=== PATIENT | male | born 1935 | race Caucasian/White ===

== ENCOUNTER 2019-08-27 00:40 | Inpatient (IN) ==
[2019-08-27] MEDS ORDERED: Aspirin 81 MG TAB.CHEW PO ONE (00:55)
[2019-08-27 01:34] LABS: Basophils % 0.3 %; Eosinophils # 1.2 K/mcL (0.0-0.6); Eosinophils % 12.4 %; Hematocrit 37.8 % (37.5-50.1); Hemoglobin 13.9 g/dL (12.9-16.9); Immature Granulocytes % 0.9 % (0-4); Lymphocytes # 1.2 K/mcL (0.6-4.6); Lymphocytes % 12.6 %; Mean Corpuscular HGB Conc 36.8 g/dL (31.6-35.5); Mean Corpuscular Volume 87.1 fL (83.0-100.0); Mean Platelet Volume 10.1 fL (9.4-12.4); Monocytes # 0.5 K/mcL (0.0-1.3); Platelet Count 216 K/mcL (140-400); Red Blood Count 4.34 M/mcL (4.19-5.50); Red Cell Distribution Width 12.3 % (11.5-14.5); Segmented Neutrophils % 68.8 %; White Blood Count 9.7 K/mcL (4.3-11.1)
[2019-08-27 01:36] LABS: INR 2.6; Prothrombin Time 29.7 Seconds (9.4-12.1)
[2019-08-27 01:40] LABS: Neutrophils # 6.7 K/mcL (1.6-8.9)
[2019-08-27 01:52] LABS: Albumin 4.1 g/dL (3.5-5.7); Albumin/Globulin Ratio 1.4 (1.1-2.2); Bilirubin,Direct 0.1 mg/dL (0.0-0.2); Bilirubin,Indirect 0.4 mg/dL (0.0-1.0); Bilirubin,Total 0.5 mg/dL (0.3-1.0); Total Protein 7.1 g/dL (6.4-8.9)
[2019-08-27 01:56] LABS: BUN/Creatinine Ratio 18 (6-26); Blood Urea Nitrogen 24 mg/dL (8-23); Calcium 9.5 mg/dL (8.6-10.3); Carbon Dioxide 26 mEq/L (23-29); Chloride 91 mEq/L (98-107); Glucose 316 mg/dL (70-105); Osmolality,Calculated 282 (280-300); Potassium 3.7 mEq/L (3.5-5.1); Sodium 128 mEq/L (136-145); Troponin I < 0.03 ng/mL (< 0.04); eGFR For African Americans > 60 (> 60); eGFR For Non-African Americans 51 (> 60)
[2019-08-27 02:28] LABS: Platelet Estimate Normal (Normal); Reactive Lymphocytes Present (Not Present)
[2019-08-27] MEDS ORDERED: Nitroglycerin 0.4 MG TAB.SUBL SL ONE (02:30)
[2019-08-27] MEDS ORDERED: cefTRIAXone 1,000 MG in 0.9 % Sodium Chloride Mini Bag 100 ML IVPB ONE (02:38)
[2019-08-27] MEDS: 0.9 % Sodium Chloride 1,000 ML IVC SCH ×2 (05:51→15:04)
[2019-08-27] MEDS ORDERED: Naloxone 0.4 MG/ML INJ IVP PRN (07:14)
[2019-08-27] MEDS: amLODIPine 5 MG TABLET PO SCH (07:48)
[2019-08-27] MEDS: Lisinopril 20 MG TABLET PO SCH (07:48)
[2019-08-27] MEDS ORDERED: *HR* Dextrose 50 % in Water (Syg) 50 ML SYRINGE IVP PRN (07:55)
[2019-08-27] MEDS ORDERED: D5% in Water 1,000 ML IVC PRN (07:55)
[2019-08-27] MEDS ORDERED: Dextrose Gel 15 GM/37.5 ML TUBE PO PRN ×2 (07:55)
[2019-08-27] MEDS ORDERED: Nitroglycerin 0.4 MG TAB.SUBL SL PRN (08:08)
[2019-08-27] MEDS ORDERED: NON-FORMULARY MEDICATION 1 EACH EACH (Amlodipine Besylate/Benazepril [Amlodipine-Benazepri PO SCH (09:00)
[2019-08-27] MEDS ORDERED: *HR* Warfarin 5 MG TABLET PO SCH (09:00)
[2019-08-27] MEDS ORDERED: *HR* Heparin 5,000 UNIT/ML VIAL IVP PRN ×2 (09:46)
[2019-08-27] MEDS ORDERED: *HR* Heparin 5,000 UNIT/ML VIAL IVP ONE (09:46)
[2019-08-27] MEDS ORDERED: Heparin 25,000 UNIT/250 ML D5W 25,000 UNIT/250 ML IV.SOLN IVC SCH (10:00)
[2019-08-27 10:21] LABS: Estimated Average Glucose 174 mg/dl
[2019-08-27] MEDS ORDERED: cefTRIAXone 1,000 MG in 0.9 % Sodium Chloride Mini Bag 100 ML IVPB SCH (10:26)
[2019-08-27] MEDS: Aspirin 81 MG TAB.CHEW PO SCH (10:56)
[2019-08-27 11:56] LABS: Hematocrit 35.1 % (37.5-50.1); Hemoglobin 12.6 g/dL (12.9-16.9); Mean Corpuscular HGB Conc 35.9 g/dL (31.6-35.5); Mean Corpuscular Hemoglobin 32.1 pg (28.0-33.3); Mean Corpuscular Volume 89.5 fL (83.0-100.0); Mean Platelet Volume 10.1 fL (9.4-12.4); Platelet Count 200 K/mcL (140-400); Red Blood Count 3.92 M/mcL (4.19-5.50); Red Cell Distribution Width 12.3 % (11.5-14.5); White Blood Count 9.6 K/mcL (4.3-11.1)
[2019-08-27] MEDS: Insulin LISPRO 300 UNITS/3 ML VIAL SQ SCH ×3 (11:57→21:42)
[2019-08-27 12:01] LABS: INR 2.8; Prothrombin Time 31.7 Seconds (9.4-12.1)
[2019-08-27] MEDS ORDERED: *HR* Warfarin 5 MG TABLET PO ONE (18:00)
[2019-08-27] MEDS ORDERED: Warfarin perPT PO PRN (18:00)
[2019-08-27 18:48] LABS: Varicella Zoster IgG Antibody Positive
[2019-08-27 19:26] LABS: HIV-1&2 Antibody & p24 Ag Nonreactive (Nonreactive)
[2019-08-27] MEDS: valACYclovir 500 MG TABLET PO SCH (21:09)
[2019-08-27] MEDS ORDERED: 0.9 % Sodium Chloride 1,000 ML IVC SCH (23:59)
[2019-08-28] MEDS ORDERED: cefTRIAXone 1,000 MG in Water for inj. (sterile) 10 ML IVP SCH (02:00)
[2019-08-28 08:31] LABS: Hematocrit 37.6 % (37.5-50.1); Hemoglobin 13.6 g/dL (12.9-16.9); Mean Corpuscular HGB Conc 36.2 g/dL (31.6-35.5); Mean Corpuscular Hemoglobin 31.9 pg (28.0-33.3); Mean Corpuscular Volume 88.3 fL (83.0-100.0); Monocytes # 0.4 K/mcL (0.0-1.3); Platelet Count 192 K/mcL (140-400); Red Blood Count 4.26 M/mcL (4.19-5.50); Red Cell Distribution Width 12.7 % (11.5-14.5); White Blood Count 8.7 K/mcL (4.3-11.1)
[2019-08-28 08:36] LABS: INR 2.1; Prothrombin Time 23.6 Seconds (9.4-12.1)
[2019-08-28 08:54] LABS: BUN/Creatinine Ratio 17 (6-26); Blood Urea Nitrogen 20 mg/dL (8-23); Calcium 8.5 mg/dL (8.6-10.3); Carbon Dioxide 29 mEq/L (23-29); Chloride 99 mEq/L (98-107); Glucose 150 mg/dL (70-105); Magnesium 1.7 mg/dL (1.6-2.6); Osmolality,Calculated 285 (280-300); Phosphorous 2.3 mg/dL (2.7-4.5); Potassium 3.7 mEq/L (3.5-5.1); Sodium 135 mEq/L (136-145); eGFR For African Americans > 60 (> 60); eGFR For Non-African Americans 60 (> 60)
[2019-08-28] MEDS ORDERED: cefTRIAXone 2,000 MG in Water for inj. (sterile) 20 ML IVP SCH (09:00)
[2019-08-28 09:06] LABS: Eosinophils # 1.9 K/mcL (0.0-0.6); Lymphocytes # 1.4 K/mcL (0.6-4.6); Neutrophils # 5.1 K/mcL (1.6-8.9); Platelet Estimate Normal (Normal); Reactive Lymphocytes Present (Not Present)
[2019-08-28] MEDS: amLODIPine 5 MG TABLET PO SCH (10:16)
[2019-08-28] MEDS: valACYclovir 500 MG TABLET PO SCH ×2 (10:17→21:00)
[2019-08-28] MEDS: Insulin LISPRO 300 UNITS/3 ML VIAL SQ SCH ×4 (10:17→21:01)
[2019-08-28] MEDS: Lisinopril 20 MG TABLET PO SCH (10:17)
[2019-08-28] MEDS: Aspirin 81 MG TAB.CHEW PO SCH (10:17)
[2019-08-28] MEDS: cefTRIAXone 2,000 MG in 0.9 % Sodium Chloride Mini Bag 100 ML IVPB SCH (10:17)
[2019-08-29 07:51] LABS: Hematocrit 36.9 % (37.5-50.1); Hemoglobin 13.8 g/dL (12.9-16.9); Immature Platelets 2.3 % (1.1-6.1); Mean Corpuscular Hemoglobin 32.9 pg (28.0-33.3); Mean Corpuscular Volume 87.9 fL (83.0-100.0); Mean Platelet Volume 9.4 fL (9.4-12.4); Platelet Count 187 K/mcL (140-400); Red Cell Distribution Width 12.4 % (11.5-14.5); White Blood Count 9.8 K/mcL (4.3-11.1)
[2019-08-29 07:55] LABS: Mean Corpuscular HGB Conc 37.4 g/dL (31.6-35.5)
[2019-08-29 07:57] LABS: INR 1.6; Prothrombin Time 18.7 Seconds (9.4-12.1)
[2019-08-29] MEDS: Lisinopril 20 MG TABLET PO SCH (08:05)
[2019-08-29] MEDS: Cyanocobalamin (B-12) 1,000 MCG TABLET PO SCH (08:05)
[2019-08-29] MEDS: amLODIPine 5 MG TABLET PO SCH (08:05)
[2019-08-29] MEDS: valACYclovir 500 MG TABLET PO SCH ×2 (08:05→20:11)
[2019-08-29] MEDS: cefTRIAXone 2,000 MG in 0.9 % Sodium Chloride Mini Bag 100 ML IVPB SCH (08:05)
[2019-08-29] MEDS: Aspirin 81 MG TAB.CHEW PO SCH (08:05)
[2019-08-29] MEDS: Insulin LISPRO 300 UNITS/3 ML VIAL SQ SCH ×4 (08:13→20:12)
[2019-08-29 08:15] LABS: Eosinophils # 2.4 K/mcL (0.0-0.6); Lymphocytes # 2.8 K/mcL (0.6-4.6); Monocytes # 0.2 K/mcL (0.0-1.3); Neutrophils # 4.4 K/mcL (1.6-8.9)
[2019-08-29 08:16] LABS: Platelet Estimate Normal (Normal); Reactive Lymphocytes Present (Not Present)
[2019-08-29 08:23] LABS: BUN/Creatinine Ratio 20 (6-26); Blood Urea Nitrogen 20 mg/dL (8-23); Calcium 9.2 mg/dL (8.6-10.3); Carbon Dioxide 27 mEq/L (23-29); Chloride 98 mEq/L (98-107); Glucose 191 mg/dL (70-105); Magnesium 1.7 mg/dL (1.6-2.6); Osmolality,Calculated 284 (280-300); Phosphorous 2.9 mg/dL (2.7-4.5); Potassium 3.7 mEq/L (3.5-5.1); Sodium 133 mEq/L (136-145); eGFR For African Americans > 60 (> 60); eGFR For Non-African Americans > 60 (> 60)
[2019-08-29] MEDS ORDERED: *HR* Heparin 5,000 UNIT/ML VIAL IVP ONE (12:13)
[2019-08-29] MEDS ORDERED: *HR* Heparin 5,000 UNIT/ML VIAL IVP PRN ×2 (12:13)
[2019-08-29] MEDS ORDERED: Heparin 25,000 UNIT/250 ML D5W 25,000 UNIT/250 ML IV.SOLN IVC SCH (12:15)
[2019-08-29 12:44] LABS: Hematocrit 38.7 % (37.5-50.1); Hemoglobin 14.1 g/dL (12.9-16.9); Mean Corpuscular HGB Conc 36.4 g/dL (31.6-35.5); Mean Platelet Volume 9.7 fL (9.4-12.4); Platelet Count 242 K/mcL (140-400); Red Cell Distribution Width 12.4 % (11.5-14.5); White Blood Count 10.5 K/mcL (4.3-11.1)
[2019-08-29 12:54] LABS: INR 1.4; Prothrombin Time 16.3 Seconds (9.4-12.1)
[2019-08-30 02:52] LABS: Basophils # 0.1 K/mcL (0.0-0.2); Basophils % 0.8 %; Eosinophils # 3.1 K/mcL (0.0-0.6); Eosinophils % 31.1 %; Hematocrit 37.1 % (37.5-50.1); Hemoglobin 13.5 g/dL (12.9-16.9); Immature Granulocytes % 1.3 % (0-4); Lymphocytes # 2.1 K/mcL (0.6-4.6); Lymphocytes % 21.4 %; Mean Corpuscular HGB Conc 36.4 g/dL (31.6-35.5); Mean Corpuscular Volume 87.9 fL (83.0-100.0); Mean Platelet Volume 9.7 fL (9.4-12.4); Monocytes # 0.4 K/mcL (0.0-1.3); Monocytes % 3.9 %; Neutrophils # 4.2 K/mcL (1.6-8.9); Platelet Count 215 K/mcL (140-400); Red Blood Count 4.22 M/mcL (4.19-5.50); Red Cell Distribution Width 12.2 % (11.5-14.5); Segmented Neutrophils % 41.5 %
[2019-08-30 03:10] LABS: BUN/Creatinine Ratio 23 (6-26); Blood Urea Nitrogen 24 mg/dL (8-23); Calcium 9.2 mg/dL (8.6-10.3); Carbon Dioxide 28 mEq/L (23-29); Chloride 99 mEq/L (98-107); Glucose 171 mg/dL (70-105); Magnesium 1.6 mg/dL (1.6-2.6); Osmolality,Calculated 284 (280-300); Phosphorous 3.7 mg/dL (2.7-4.5); Sodium 133 mEq/L (136-145); eGFR For African Americans > 60 (> 60); eGFR For Non-African Americans > 60 (> 60)
[2019-08-30 03:27] LABS: Platelet Estimate Normal (Normal); Reactive Lymphocytes Present (Not Present)
[2019-08-30] MEDS: cefTRIAXone 2,000 MG in 0.9 % Sodium Chloride Mini Bag 100 ML IVPB SCH (07:53)
[2019-08-30] MEDS: valACYclovir 500 MG TABLET PO SCH ×3 (07:54→21:45)
[2019-08-30] MEDS: Aspirin 81 MG TAB.CHEW PO SCH (07:54)
[2019-08-30] MEDS: Cyanocobalamin (B-12) 1,000 MCG TABLET PO SCH (07:54)
[2019-08-30] MEDS: Lisinopril 20 MG TABLET PO SCH (07:54)
[2019-08-30] MEDS: amLODIPine 5 MG TABLET PO SCH (07:54)
[2019-08-30] MEDS: Insulin LISPRO 300 UNITS/3 ML VIAL SQ SCH ×4 (07:56→21:44)
[2019-08-30 12:33] LABS: INR 1.3; Prothrombin Time 15.3 Seconds (9.4-12.1)
[2019-08-30] MEDS ORDERED: Warfarin perPT PO PRN (18:00)
[2019-08-30] MEDS ORDERED: *HR* Warfarin 5 MG TABLET PO ONE (18:00)
[2019-08-31] MEDS ORDERED: Acetaminophen 325 MG TABLET PO ONE (03:17)
[2019-08-31 06:21] LABS: Basophils # 0.1 K/mcL (0.0-0.2); Basophils % 0.5 %; Eosinophils % 37.1 %; Hematocrit 35.2 % (37.5-50.1); Hemoglobin 12.8 g/dL (12.9-16.9); Immature Granulocytes % 1.1 % (0-4); Lymphocytes # 1.7 K/mcL (0.6-4.6); Mean Corpuscular HGB Conc 36.4 g/dL (31.6-35.5); Mean Corpuscular Hemoglobin 32.2 pg (28.0-33.3); Mean Corpuscular Volume 88.7 fL (83.0-100.0); Mean Platelet Volume 9.6 fL (9.4-12.4); Monocytes # 0.4 K/mcL (0.0-1.3); Monocytes % 3.9 %; Neutrophils # 4.3 K/mcL (1.6-8.9); Platelet Count 208 K/mcL (140-400); Red Blood Count 3.97 M/mcL (4.19-5.50); Red Cell Distribution Width 12.3 % (11.5-14.5); Segmented Neutrophils % 41.4 %; White Blood Count 10.4 K/mcL (4.3-11.1)
[2019-08-31 06:23] LABS: Eosinophils # 3.9 K/mcL (0.0-0.6)
[2019-08-31 06:31] LABS: INR 1.3; Prothrombin Time 14.6 Seconds (9.4-12.1)
[2019-08-31 06:39] LABS: Platelet Estimate Normal (Normal); Reactive Lymphocytes Present (Not Present)
[2019-08-31 06:42] LABS: BUN/Creatinine Ratio 21 (6-26); Blood Urea Nitrogen 23 mg/dL (8-23); Calcium 9.1 mg/dL (8.6-10.3); Carbon Dioxide 28 mEq/L (23-29); Chloride 100 mEq/L (98-107); Glucose 170 mg/dL (70-105); Magnesium 1.6 mg/dL (1.6-2.6); Osmolality,Calculated 288 (280-300); Potassium 3.6 mEq/L (3.5-5.1); Sodium 135 mEq/L (136-145); eGFR For African Americans > 60 (> 60); eGFR For Non-African Americans > 60 (> 60)
[2019-08-31] MEDS: Insulin LISPRO 300 UNITS/3 ML VIAL SQ SCH ×2 (09:07→12:01)
[2019-08-31] MEDS: valACYclovir 500 MG TABLET PO SCH ×2 (09:07→13:45)
[2019-08-31] MEDS: Lisinopril 20 MG TABLET PO SCH (09:07)
[2019-08-31] MEDS: Cyanocobalamin (B-12) 1,000 MCG TABLET PO SCH (09:08)
[2019-08-31] MEDS: cefTRIAXone 2,000 MG in 0.9 % Sodium Chloride Mini Bag 100 ML IVPB SCH (09:08)
[2019-08-31] MEDS: amLODIPine 5 MG TABLET PO SCH (09:08)
[2019-08-31] MEDS: Aspirin 81 MG TAB.CHEW PO SCH (09:08)
[2019-08-31] MEDS ORDERED: Warfarin perPT PO PRN (10:45)
[2019-08-31 11:20] VITALS: BP 128/59
[2019-08-31] MEDS ORDERED: Aminoglycoside Consult 1 EACH MC ONE (14:57)
[2019-08-31] MEDS ORDERED: *HR* Warfarin 5 MG TABLET PO ONE (18:00)
== END 2019-08-31 14:58 | disposition home or self-care (01) | DRG 281 ==
LOC: 2ANU 00:40 → EMEROOARM 00:40 → SUATTDRO 03:34 → 2ANU 04:00
PROVIDERS: ADMIT Internal Medicine; ATTEND Pharmacist

== ENCOUNTER 2019-08-31 21:49 | Inpatient (IN) ==
[2019-08-31] MEDS ORDERED: *HR* FentaNYL (PF) 100 MCG/2 ML VIAL IVP ONE (22:00)
[2019-08-31] MEDS ORDERED: 0.9 % Sodium Chloride 500 ML IVC ONE (22:07)
[2019-08-31] MEDS ORDERED: *HR* Heparin 5,000 UNIT/ML VIAL IVP ONE (22:11)
[2019-08-31] MEDS ORDERED: *HR* Heparin 5,000 UNIT/ML VIAL IVP PRN ×2 (22:11)
[2019-08-31 22:34] LABS: Basophils # 0.1 K/mcL (0.0-0.2); Basophils % 0.4 %; Eosinophils % 35.4 %; Hematocrit 35.8 % (37.5-50.1); Hemoglobin 13.2 g/dL (12.9-16.9); Immature Granulocytes % 0.9 % (0-4); Lymphocytes # 1.7 K/mcL (0.6-4.6); Mean Corpuscular HGB Conc 36.9 g/dL (31.6-35.5); Mean Corpuscular Hemoglobin 32.3 pg (28.0-33.3); Mean Corpuscular Volume 87.5 fL (83.0-100.0); Mean Platelet Volume 10.1 fL (9.4-12.4); Monocytes # 0.5 K/mcL (0.0-1.3); Monocytes % 4.2 %; Platelet Count 238 K/mcL (140-400); Red Blood Count 4.09 M/mcL (4.19-5.50); Red Cell Distribution Width 12.2 % (11.5-14.5); Segmented Neutrophils % 44.1 %; White Blood Count 11.4 K/mcL (4.3-11.1)
[2019-08-31 22:36] LABS: INR 1.2; Prothrombin Time 13.4 Seconds (9.4-12.1)
[2019-08-31] MEDS: Heparin 25,000 UNIT/250 ML D5W 25,000 UNIT/250 ML IV.SOLN IVC SCH (22:50)
[2019-08-31 22:52] LABS: BUN/Creatinine Ratio 22 (6-26); Blood Urea Nitrogen 27 mg/dL (8-23); Calcium 9.2 mg/dL (8.6-10.3); Carbon Dioxide 22 mEq/L (23-29); Chloride 96 mEq/L (98-107); Glucose 305 mg/dL (70-105); Osmolality,Calculated 289 (280-300); Potassium 3.9 mEq/L (3.5-5.1); Sodium 131 mEq/L (136-145); eGFR For African Americans > 60 (> 60); eGFR For Non-African Americans 55 (> 60)
[2019-08-31 22:53] LABS: Troponin I 0.03 ng/mL (< 0.04)
[2019-08-31 23:17] LABS: Platelet Estimate Normal (Normal); Reactive Lymphocytes Present (Not Present)
[2019-08-31] MEDS ORDERED: Isovue-370 500 ML BOTTLE IVP ONE (23:28)
[2019-09-01] MEDS ORDERED: Naloxone 0.4 MG/ML INJ IVP PRN (05:09)
[2019-09-01] MEDS ORDERED: Dextrose Gel 15 GM/37.5 ML TUBE PO PRN ×2 (05:11)
[2019-09-01] MEDS ORDERED: D5% in Water 1,000 ML IVC PRN (05:11)
[2019-09-01] MEDS ORDERED: *HR* Dextrose 50 % in Water (Syg) 50 ML SYRINGE IVP PRN (05:11)
[2019-09-01 05:43] LABS: Basophils # 0.1 K/mcL (0.0-0.2); Basophils % 0.9 %; Eosinophils # 3.8 K/mcL (0.0-0.6); Eosinophils % 35.9 %; Hematocrit 34.4 % (37.5-50.1); Hemoglobin 11.8 g/dL (12.9-16.9); Immature Granulocytes % 0.9 % (0-4); Lymphocytes # 2.1 K/mcL (0.6-4.6); Lymphocytes % 19.7 %; Mean Corpuscular HGB Conc 34.3 g/dL (31.6-35.5); Mean Corpuscular Hemoglobin 31.9 pg (28.0-33.3); Mean Platelet Volume 10.1 fL (9.4-12.4); Monocytes # 0.7 K/mcL (0.0-1.3); Monocytes % 6.3 %; Neutrophils # 3.8 K/mcL (1.6-8.9); Platelet Count 194 K/mcL (140-400); Red Cell Distribution Width 12.5 % (11.5-14.5); Segmented Neutrophils % 36.3 %; White Blood Count 10.5 K/mcL (4.3-11.1)
[2019-09-01] MEDS: Insulin LISPRO 300 UNITS/3 ML VIAL SQ SCH ×4 (05:55→21:47)
[2019-09-01 06:00] LABS: Platelet Estimate Normal (Normal)
[2019-09-01 06:02] LABS: BUN/Creatinine Ratio 22 (6-26); Blood Urea Nitrogen 24 mg/dL (8-23); Calcium 8.7 mg/dL (8.6-10.3); Carbon Dioxide 25 mEq/L (23-29); Chloride 101 mEq/L (98-107); Glucose 202 mg/dL (70-105); Osmolality,Calculated 286 (280-300); Potassium 3.8 mEq/L (3.5-5.1); Sodium 133 mEq/L (136-145); eGFR For African Americans > 60 (> 60); eGFR For Non-African Americans > 60 (> 60)
[2019-09-01] MEDS ORDERED: Metoprolol XL (24 HR) Succ 25 MG TAB.ER.24H PO SCH (09:00)
[2019-09-01] MEDS ORDERED: Metoprolol XL (24 HR) Succ 25 MG TAB.ER.24H PO ONE ×2 (10:19→10:30)
[2019-09-01] MEDS: Heparin 25,000 UNIT/250 ML D5W 25,000 UNIT/250 ML IV.SOLN IVC SCH (17:44)
[2019-09-01] MEDS ORDERED: *HR* Warfarin 5 MG TABLET PO ONE (18:00)
[2019-09-01] MEDS ORDERED: Warfarin perPT PO PRN (18:00)
[2019-09-02] MEDS: Nitroglycerin 0.4 MG TAB.SUBL SL PRN ×5 (05:04→21:06)
[2019-09-02 06:23] LABS: INR 1.3; Prothrombin Time 14.3 Seconds (9.4-12.1)
[2019-09-02] MEDS: Metoprolol XL (24 HR) Succ 25 MG TAB.ER.24H PO SCH (07:19)
[2019-09-02] MEDS: Aspirin Enteric Coated 81 MG Tablet PO SCH (07:19)
[2019-09-02] MEDS: predniSONE 20 MG TABLET PO SCH (08:28)
[2019-09-02] MEDS: Insulin LISPRO 300 UNITS/3 ML VIAL SQ SCH ×4 (08:29→20:58)
[2019-09-02] MEDS: Heparin 25,000 UNIT/250 ML D5W 25,000 UNIT/250 ML IV.SOLN IVC SCH (11:30)
[2019-09-02] MEDS ORDERED: amLODIPine 5 MG TABLET PO SCH (13:47)
[2019-09-02] MEDS ORDERED: *HR* Warfarin 5 MG TABLET PO ONE (18:00)
[2019-09-02] MEDS: Insulin DETEMIR 100 UNIT/ML X5UNITS SQ SCH (21:00)
[2019-09-02] MEDS ORDERED: *HR* HYDROmorphone 2 MG TABLET PO ONE (21:06)
[2019-09-03] MEDS: Nitroglycerin 0.4 MG TAB.SUBL SL PRN ×3 (01:35→05:45)
[2019-09-03 06:43] LABS: INR 1.2
[2019-09-03] MEDS: Insulin LISPRO 300 UNITS/3 ML VIAL SQ SCH ×4 (07:33→20:16)
[2019-09-03] MEDS: amLODIPine 5 MG TABLET PO SCH (07:50)
[2019-09-03] MEDS: Metoprolol XL (24 HR) Succ 25 MG TAB.ER.24H PO SCH (07:51)
[2019-09-03] MEDS: Aspirin Enteric Coated 81 MG Tablet PO SCH (07:51)
[2019-09-03] MEDS: predniSONE 20 MG TABLET PO SCH (07:51)
[2019-09-03 07:59] LABS: Hematocrit 34.4 % (37.5-50.1); Hemoglobin 12.6 g/dL (12.9-16.9); Mean Corpuscular HGB Conc 36.6 g/dL (31.6-35.5); Mean Corpuscular Hemoglobin 32.2 pg (28.0-33.3); Mean Platelet Volume 9.8 fL (9.4-12.4); Platelet Count 207 K/mcL (140-400); Red Blood Count 3.91 M/mcL (4.19-5.50); Red Cell Distribution Width 12.3 % (11.5-14.5); White Blood Count 10.4 K/mcL (4.3-11.1)
[2019-09-03 08:09] LABS: BUN/Creatinine Ratio 22 (6-26); Blood Urea Nitrogen 22 mg/dL (8-23); Calcium 9.3 mg/dL (8.6-10.3); Carbon Dioxide 27 mEq/L (23-29); Chloride 100 mEq/L (98-107); Glucose 176 mg/dL (70-105); Magnesium 1.8 mg/dL (1.6-2.6); Osmolality,Calculated 288 (280-300); Phosphorous 2.7 mg/dL (2.7-4.5); Potassium 3.9 mEq/L (3.5-5.1); Sodium 135 mEq/L (136-145); eGFR For African Americans > 60 (> 60); eGFR For Non-African Americans > 60 (> 60)
[2019-09-03] MEDS: Heparin 25,000 UNIT/250 ML D5W 25,000 UNIT/250 ML IV.SOLN IVC SCH ×2 (09:20→18:57)
[2019-09-03] MEDS ORDERED: *HR* Midazolam HCl 2 MG/2 ML VIAL ONE (14:48)
[2019-09-03] MEDS ORDERED: *HR* FentaNYL (PF) 100 MCG/2 ML VIAL ONE (14:49)
[2019-09-03] MEDS ORDERED: Nitroglycerin 25 MG/250 ML INFUS..BTL IVC ONE (16:50)
[2019-09-03] MEDS: Nitroglycerin 25 MG/250 ML INFUS..BTL IVC SCH (16:56)
[2019-09-03] MEDS ORDERED: *HR* Warfarin 5 MG TABLET PO ONE (18:00)
[2019-09-03] MEDS: Insulin DETEMIR 100 UNIT/ML X5UNITS SQ SCH (20:16)
[2019-09-04 04:04] LABS: Basophils % 0.4 %; Eosinophils # 0.1 K/mcL (0.0-0.6); Eosinophils % 1.4 %; Hematocrit 32.1 % (37.5-50.1); Hemoglobin 11.6 g/dL (12.9-16.9); Immature Granulocytes % 1.3 % (0-4); Lymphocytes # 2.1 K/mcL (0.6-4.6); Lymphocytes % 21.2 %; Mean Corpuscular HGB Conc 36.1 g/dL (31.6-35.5); Mean Corpuscular Hemoglobin 32.3 pg (28.0-33.3); Mean Corpuscular Volume 89.4 fL (83.0-100.0); Mean Platelet Volume 9.9 fL (9.4-12.4); Monocytes # 0.7 K/mcL (0.0-1.3); Monocytes % 7.5 %; Neutrophils # 6.7 K/mcL (1.6-8.9); Platelet Count 209 K/mcL (140-400); Red Blood Count 3.59 M/mcL (4.19-5.50); Red Cell Distribution Width 12.7 % (11.5-14.5); Segmented Neutrophils % 68.2 %; White Blood Count 9.8 K/mcL (4.3-11.1)
[2019-09-04 04:09] LABS: INR 1.3; Prothrombin Time 14.4 Seconds (9.4-12.1)
[2019-09-04 04:22] LABS: BUN/Creatinine Ratio 22 (6-26); Blood Urea Nitrogen 24 mg/dL (8-23); Calcium 9.3 mg/dL (8.6-10.3); Carbon Dioxide 25 mEq/L (23-29); Chloride 102 mEq/L (98-107); Glucose 160 mg/dL (70-105); Magnesium 1.8 mg/dL (1.6-2.6); Osmolality,Calculated 285 (280-300); Phosphorous 2.9 mg/dL (2.7-4.5); Potassium 3.9 mEq/L (3.5-5.1); Sodium 134 mEq/L (136-145); eGFR For African Americans > 60 (> 60); eGFR For Non-African Americans > 60 (> 60)
[2019-09-04] MEDS: Insulin LISPRO 300 UNITS/3 ML VIAL SQ SCH ×5 (08:23→20:35)
[2019-09-04] MEDS: Aspirin Enteric Coated 81 MG Tablet PO SCH (08:24)
[2019-09-04] MEDS: amLODIPine 5 MG TABLET PO SCH (08:24)
[2019-09-04] MEDS: predniSONE 20 MG TABLET PO SCH (08:24)
[2019-09-04] MEDS: Metoprolol XL (24 HR) Succ 25 MG TAB.ER.24H PO SCH (08:24)
[2019-09-04] MEDS: Nitroglycerin 25 MG/250 ML INFUS..BTL IVC SCH (14:02)
[2019-09-04] MEDS: Heparin 25,000 UNIT/250 ML D5W 25,000 UNIT/250 ML IV.SOLN IVC SCH (14:03)
[2019-09-04] MEDS: Insulin DETEMIR 100 UNIT/ML X5UNITS SQ SCH (20:36)
[2019-09-05] MEDS: Aspirin Enteric Coated 81 MG Tablet PO SCH (08:29)
[2019-09-05] MEDS: amLODIPine 5 MG TABLET PO SCH (08:29)
[2019-09-05] MEDS: Metoprolol XL (24 HR) Succ 25 MG TAB.ER.24H PO SCH (08:29)
[2019-09-05] MEDS: Insulin LISPRO 300 UNITS/3 ML VIAL SQ SCH ×3 (08:30→21:29)
[2019-09-05 10:17] LABS: Basophils % 0.4 %; Eosinophils # 0.2 K/mcL (0.0-0.6); Eosinophils % 2.2 %; Hematocrit 32.7 % (37.5-50.1); Hemoglobin 11.5 g/dL (12.9-16.9); Immature Granulocytes % 0.9 % (0-4); Lymphocytes # 2.2 K/mcL (0.6-4.6); Lymphocytes % 22.3 %; Mean Corpuscular HGB Conc 35.2 g/dL (31.6-35.5); Mean Corpuscular Hemoglobin 32.2 pg (28.0-33.3); Mean Corpuscular Volume 91.6 fL (83.0-100.0); Mean Platelet Volume 9.8 fL (9.4-12.4); Monocytes # 0.7 K/mcL (0.0-1.3); Monocytes % 6.9 %; Neutrophils # 6.5 K/mcL (1.6-8.9); Platelet Count 197 K/mcL (140-400); Red Blood Count 3.57 M/mcL (4.19-5.50); Segmented Neutrophils % 67.3 %; White Blood Count 9.7 K/mcL (4.3-11.1)
[2019-09-05 10:22] LABS: INR 1.2; Prothrombin Time 13.5 Seconds (9.4-12.1)
[2019-09-05 10:25] LABS: Activated Partial Thrombo Time 73.2 Seconds (26.0-36.0)
[2019-09-05 10:37] LABS: BUN/Creatinine Ratio 20 (6-26); Blood Urea Nitrogen 26 mg/dL (8-23); Calcium 9.4 mg/dL (8.6-10.3); Carbon Dioxide 24 mEq/L (23-29); Chloride 99 mEq/L (98-107); Chol/HDL Ratio 2.8 (0-4.9); Cholesterol 126 mg/dL (< 200); Glucose 217 mg/dL (70-105); HDL Cholesterol 45 mg/dL (40-59); LDL Cholesterol,Calculated 55 mg/dL (0-99); Osmolality,Calculated 285 (280-300); Potassium 3.6 mEq/L (3.5-5.1); Sodium 132 mEq/L (136-145); Triglycerides 131 mg/dL (< 150); eGFR For African Americans > 60 (> 60); eGFR For Non-African Americans 53 (> 60)
[2019-09-05] MEDS: Heparin 25,000 UNIT/250 ML D5W 25,000 UNIT/250 ML IV.SOLN IVC SCH (11:20)
[2019-09-05] MEDS: Chlorhexidine Rinse 15 ML MOUTHWASH MM SCH ×2 (11:55→21:29)
[2019-09-05] MEDS: Nitroglycerin 25 MG/250 ML INFUS..BTL IVC SCH (14:06)
[2019-09-05] MEDS: Insulin DETEMIR 100 UNIT/ML X5UNITS SQ SCH (21:29)
[2019-09-06] MEDS: Nitroglycerin 25 MG/250 ML INFUS..BTL IVC SCH ×2 (06:31→14:37)
[2019-09-06 07:14] LABS: Estimated Average Glucose 174 mg/dl
[2019-09-06] MEDS: Heparin 25,000 UNIT/250 ML D5W 25,000 UNIT/250 ML IV.SOLN IVC SCH (07:27)
[2019-09-06] MEDS ORDERED: Tranexamic Acid 1,000 MG/10 ML VIAL IVP ONE (08:07)
[2019-09-06] MEDS ORDERED: *HR* Magnesium Sulfate 2 GM/50 ML PIGGYBACK IVPB ONE (08:07)
[2019-09-06] MEDS ORDERED: Mannitol 25% vial 12.5 GM/50 ML VIAL IVP ONE (08:07)
[2019-09-06] MEDS ORDERED: Albumin Human 25% 25 GM/100 ML IV.SOLN IV ONE (08:07)
[2019-09-06] MEDS ORDERED: *HR* Phenylephrine 10 MG/ML VIAL IVC ONE (08:07)
[2019-09-06] MEDS ORDERED: Lidocaine 2% Syringe 100 MG/5 ML IV ONE (08:07)
[2019-09-06] MEDS ORDERED: *HR* Heparin 10,000 UNIT/10 ML VIAL IV ONE (08:07)
[2019-09-06] MEDS: amLODIPine 5 MG TABLET PO SCH (08:49)
[2019-09-06] MEDS: Insulin LISPRO 300 UNITS/3 ML VIAL SQ SCH (08:49)
[2019-09-06] MEDS: Metoprolol XL (24 HR) Succ 25 MG TAB.ER.24H PO SCH (08:49)
[2019-09-06] MEDS: Aspirin Enteric Coated 81 MG Tablet PO SCH (08:50)
[2019-09-06 08:58] LABS: INR 1.2; Prothrombin Time 13.2 Seconds (9.4-12.1)
[2019-09-06 09:00] LABS: Basophils # 0.1 K/mcL (0.0-0.2); Basophils % 0.8 %; Eosinophils # 0.8 K/mcL (0.0-0.6); Eosinophils % 8.1 %; Hematocrit 33.9 % (37.5-50.1); Hemoglobin 12.3 g/dL (12.9-16.9); Immature Granulocytes % 1.5 % (0-4); Lymphocytes # 2.4 K/mcL (0.6-4.6); Mean Corpuscular HGB Conc 36.3 g/dL (31.6-35.5); Mean Corpuscular Hemoglobin 32.5 pg (28.0-33.3); Mean Corpuscular Volume 89.4 fL (83.0-100.0); Mean Platelet Volume 10.1 fL (9.4-12.4); Monocytes # 0.9 K/mcL (0.0-1.3); Monocytes % 8.7 %; Neutrophils # 5.7 K/mcL (1.6-8.9); Platelet Count 206 K/mcL (140-400); Red Blood Count 3.79 M/mcL (4.19-5.50); Red Cell Distribution Width 13.4 % (11.5-14.5); Segmented Neutrophils % 56.9 %; White Blood Count 9.9 K/mcL (4.3-11.1)
[2019-09-06] MEDS ORDERED: NiCARdipine 2.5 MG/10 ML Syringe IVPB ONE (09:10)
[2019-09-06] MEDS ORDERED: Nitroglycerin 25 MG/250 ML INFUS..BTL IVC ONE (09:10)
[2019-09-06 09:11] LABS: BUN/Creatinine Ratio 25 (6-26); Blood Urea Nitrogen 29 mg/dL (8-23); Calcium 9.4 mg/dL (8.6-10.3); Carbon Dioxide 28 mEq/L (23-29); Chloride 100 mEq/L (98-107); Glucose 147 mg/dL (70-105); Osmolality,Calculated 285 (280-300); Sodium 133 mEq/L (136-145); eGFR For African Americans > 60 (> 60); eGFR For Non-African Americans > 60 (> 60)
[2019-09-06] MEDS ORDERED: *HR* Rocuronium Bromide 50 MG/5 ML VIAL ONE (09:11)
[2019-09-06] MEDS ORDERED: *HR* PHENYLEPHRINE 1,000 MCG/10 ML SYRINGE IVP ONE (09:11)
[2019-09-06] MEDS ORDERED: Protamine Sulfate 250 MG/25 ML VIAL IVP ONE (09:12)
[2019-09-06] MEDS ORDERED: Calcium Gluconate 1,000 MG/10 ML VIAL ONE (09:12)
[2019-09-06] MEDS ORDERED: *HR* FentaNYL (PF) 1,000 MCG/20 ML VIAL ONE (09:12)
[2019-09-06] MEDS ORDERED: *HR* Etomidate 20 MG/10 ML AMPUL IVP ONE (09:12)
[2019-09-06] MEDS ORDERED: Famotidine 20 MG/2 ML VIAL ONE (09:12)
[2019-09-06] MEDS ORDERED: Tranexamic Acid 1,000 MG/10 ML VIAL ONE ×2 (09:12→12:50)
[2019-09-06] MEDS ORDERED: *HR* Midazolam HCl 5 MG/5 ML VIAL IVP ONE (09:12)
[2019-09-06] MEDS ORDERED: Lidocaine -MPF 1% 2 ML AMPUL ONE (10:58)
[2019-09-06] MEDS ORDERED: Insulin Human Regular 100 UNIT in 0.9 % Sodium Chloride 100 ML IV PRN (12:00)
[2019-09-06] MEDS ORDERED: Heparin 15,000 UNIT in 0.9 % Sodium Chloride 500 ML IV ONE (12:00)
[2019-09-06] MEDS ORDERED: Dextrose 50 % in Water (Vial) 30 ML, Sodium Bicarbonate 20 MEQ, Lidocaine 1% 5 ML, Insu... TH ONE ×3 (12:00)
[2019-09-06] MEDS ORDERED: Norepinephrine 4 MG in 0.9 % Sodium Chloride 250 ML IVC PRN (12:00)
[2019-09-06] MEDS ORDERED: Dextrose 50 % in Water (Vial) 30 ML, Sodium Bicarbonate 20 MEQ, Potassium Chloride 15 M... TH ONE (12:00)
[2019-09-06] MEDS ORDERED: niCARdipine 20 MG/200 ML MLS IVC ONE ×2 (12:01→16:13)
[2019-09-06] MEDS ORDERED: Albumin Human 5% 25.0 GM/500 ML VIAL ONE (13:07)
[2019-09-06 13:11] LABS: ABG Base Excess 2 mEq/L (-2 to 3); ABG Chloride 96 mEq/L (98-107); ABG Glucose 218 mg/dL (60-95); ABG HCO3 26 mEq/L (21-27); ABG Ionized Calcium 1.07 mmol/L (1.15-1.35); ABG Oxygen Saturation 100 % (95-98); ABG PCO2 35 mmHg (35-45); ABG PH 7.47 pH Units (7.32-7.45); ABG PO2 527 mmHg (85-104); ABG TCO2 27 mEq/L (20-26)
[2019-09-06 13:39] LABS: ABG Base Excess 1 mEq/L (-2 to 3); ABG Chloride 96 mEq/L (98-107); ABG Glucose 190 mg/dL (60-95); ABG HCO3 26 mEq/L (21-27); ABG Oxygen Saturation 100 % (95-98); ABG PCO2 40 mmHg (35-45); ABG PH 7.42 pH Units (7.32-7.45); ABG PO2 470 mmHg (85-104); ABG TCO2 27 mEq/L (20-26)
[2019-09-06 14:10] LABS: ABG Base Excess 0 mEq/L (-2 to 3); ABG Chloride 100 mEq/L (98-107); ABG Glucose 148 mg/dL (60-95); ABG HCO3 24 mEq/L (21-27); ABG Ionized Calcium 1.39 mmol/L (1.15-1.35); ABG Oxygen Saturation 100 % (95-98); ABG PCO2 34 mmHg (35-45); ABG PH 7.44 pH Units (7.32-7.45); ABG PO2 264 mmHg (85-104); ABG TCO2 25 mEq/L (20-26)
[2019-09-06] MEDS ORDERED: *HR* Dextrose 50 % in Water (Syg) 50 ML SYRINGE IVP PRN (14:30)
[2019-09-06] MEDS ORDERED: Acetaminophen 325 MG TABLET PO PRN (14:30)
[2019-09-06] MEDS ORDERED: Insulin Regular, Human 100 UNIT/ML IV PRN (14:30)
[2019-09-06] MEDS ORDERED: Ondansetron 4 MG/2 ML VIAL IVP PRN (14:30)
[2019-09-06] MEDS ORDERED: Potassium Chloride 40 MEQ/200 ML BAG IVPB PRN (14:30)
[2019-09-06] MEDS ORDERED: Acetaminophen 650 MG RECTAL SUPP RC PRN (14:30)
[2019-09-06] MEDS ORDERED: Calcium Gluconate 1gm/50mL 1 GM/50 ML BAG IVPB PRN (14:30)
[2019-09-06] MEDS: niCARdipine 20 MG/200 ML MLS IVC SCH ×3 (14:37→22:43)
[2019-09-06 14:57] LABS: ABG Base Excess 1 mEq/L (-2 to 3); ABG HCO3 25 mEq/L (21-27); ABG Oxygen Saturation 99 % (95-98); ABG PCO2 35 mmHg (35-45); ABG PH 7.46 pH Units (7.32-7.45); ABG PO2 141 mmHg (85-104); ABG TCO2 26 mEq/L (20-26); Blood Gas Modality AF; Blood Gas VT 700 cc
[2019-09-06 15:16] LABS: INR 1.4; Prothrombin Time 15.8 Seconds (9.4-12.1)
[2019-09-06 15:18] LABS: Basophils # 0.1 K/mcL (0.0-0.2); Basophils % 0.5 %; Eosinophils # 1.5 K/mcL (0.0-0.6); Eosinophils % 8.4 %; Hematocrit 32.2 % (37.5-50.1); Hemoglobin 11.7 g/dL (12.9-16.9); Immature Granulocytes % 1.4 % (0-4); Lymphocytes # 2.5 K/mcL (0.6-4.6); Lymphocytes % 13.9 %; Mean Corpuscular HGB Conc 36.3 g/dL (31.6-35.5); Mean Corpuscular Hemoglobin 33.1 pg (28.0-33.3); Mean Platelet Volume 9.8 fL (9.4-12.4); Monocytes # 0.9 K/mcL (0.0-1.3); Neutrophils # 12.5 K/mcL (1.6-8.9); Platelet Count 122 K/mcL (140-400); Red Blood Count 3.54 M/mcL (4.19-5.50); Red Cell Distribution Width 13.2 % (11.5-14.5); Segmented Neutrophils % 70.8 %; White Blood Count 17.7 K/mcL (4.3-11.1)
[2019-09-06 15:21] LABS: Activated Partial Thrombo Time 25.2 Seconds (26.0-36.0)
[2019-09-06 15:24] LABS: BUN/Creatinine Ratio 25 (6-26); Blood Urea Nitrogen 26 mg/dL (8-23); Calcium 9.8 mg/dL (8.6-10.3); Carbon Dioxide 23 mEq/L (23-29); Chloride 101 mEq/L (98-107); Glucose 126 mg/dL (70-105); Magnesium 2.3 mg/dL (1.6-2.6); Osmolality,Calculated 282 (280-300); Potassium 3.7 mEq/L (3.5-5.1); Sodium 133 mEq/L (136-145); eGFR For African Americans > 60 (> 60); eGFR For Non-African Americans > 60 (> 60)
[2019-09-06] MEDS: Norepinephrine 4 MG in 0.9 % Sodium Chloride 250 ML IVC SCH (16:20)
[2019-09-06] MEDS: 0.9 % Sodium Chloride w KCl 20 MEQ/1,000 ML MLS IVC SCH (16:20)
[2019-09-06] MEDS: Pantoprazole 40 MG VIAL IVP SCH (16:20)
[2019-09-06] MEDS: *HR* OxyCODONE/APAP 5/325 TABLET PO PRN (16:27)
[2019-09-06] MEDS: *HR* FentaNYL (PF) 100 MCG/2 ML VIAL IVP PRN ×2 (16:35→17:31)
[2019-09-06] MEDS: Metoclopramide 10 MG/2 ML VIAL IVP SCH (16:54)
[2019-09-06] MEDS ORDERED: *HR* LORazepam 2 MG/ML VIAL ONE (17:11)
[2019-09-06] MEDS ORDERED: *HR* LORazepam 2 MG/ML VIAL IVP ONE (17:16)
[2019-09-06] MEDS: Insulin Human Regular 100 UNIT in 0.9 % Sodium Chloride 100 ML IVC SCH (17:32)
[2019-09-06 18:25] LABS: ABG Base Excess -1 mEq/L (-2 to 3); ABG HCO3 23 mEq/L (21-27); ABG Oxygen Saturation 99 % (95-98); ABG PCO2 36 mmHg (35-45); ABG PH 7.41 pH Units (7.32-7.45); ABG PO2 123 mmHg (85-104); ABG TCO2 24 mEq/L (20-26); Blood Gas Modality AF; Blood Gas VT 700 cc
[2019-09-06] MEDS: FentaNYL (PF) 1,000 MCG in 0.9 % Sodium Chloride 80 ML IVC SCH (18:34)
[2019-09-06] MEDS: Chlorhexidine Rinse 15 ML MOUTHWASH MM SCH (19:50)
[2019-09-06 21:35] LABS: Magnesium 2.4 mg/dL (1.6-2.6); Potassium 4.2 mEq/L (3.5-5.1)
[2019-09-06 23:43] LABS: ABG Base Excess 0 mEq/L (-2 to 3); ABG HCO3 25 mEq/L (21-27); ABG Oxygen Saturation 99 % (95-98); ABG PCO2 42 mmHg (35-45); ABG PH 7.38 pH Units (7.32-7.45); ABG PO2 117 mmHg (85-104); ABG TCO2 26 mEq/L (20-26); Blood Gas Modality ASSIST CONTROL; Blood Gas VT 700 cc
[2019-09-07] MEDS: FentaNYL (PF) 1,000 MCG in 0.9 % Sodium Chloride 80 ML IVC SCH ×2 (00:19→08:25)
[2019-09-07] MEDS: Metoclopramide 10 MG/2 ML VIAL IVP SCH ×2 (00:19→06:21)
[2019-09-07] MEDS: Nitroglycerin 25 MG/250 ML INFUS..BTL IVC SCH ×4 (00:20→22:04)
[2019-09-07 02:46] LABS: ABG Base Excess -1 mEq/L (-2 to 3); ABG HCO3 24 mEq/L (21-27); ABG Oxygen Saturation 99 % (95-98); ABG PCO2 42 mmHg (35-45); ABG PH 7.38 pH Units (7.32-7.45); ABG PO2 131 mmHg (85-104); ABG TCO2 26 mEq/L (20-26); Blood Gas Modality ASSIST CONTROL; Blood Gas VT 700 cc
[2019-09-07] MEDS: niCARdipine 20 MG/200 ML MLS IVC SCH ×6 (03:06→22:05)
[2019-09-07 04:24] LABS: Basophils # 0.1 K/mcL (0.0-0.2); Basophils % 0.5 %; Eosinophils # 0.7 K/mcL (0.0-0.6); Eosinophils % 7.2 %; Hematocrit 30.4 % (37.5-50.1); Hemoglobin 11.1 g/dL (12.9-16.9); Immature Granulocytes % 0.8 % (0-4); Lymphocytes # 1.6 K/mcL (0.6-4.6); Lymphocytes % 17.1 %; Mean Corpuscular HGB Conc 36.5 g/dL (31.6-35.5); Mean Corpuscular Hemoglobin 32.8 pg (28.0-33.3); Mean Corpuscular Volume 89.9 fL (83.0-100.0); Monocytes # 0.9 K/mcL (0.0-1.3); Monocytes % 9.2 %; Neutrophils # 6.2 K/mcL (1.6-8.9); Platelet Count 147 K/mcL (140-400); Red Blood Count 3.38 M/mcL (4.19-5.50); Red Cell Distribution Width 13.9 % (11.5-14.5); Segmented Neutrophils % 65.2 %; White Blood Count 9.5 K/mcL (4.3-11.1)
[2019-09-07 04:27] LABS: INR 1.1
[2019-09-07 04:42] LABS: BUN/Creatinine Ratio 21 (6-26); Blood Urea Nitrogen 24 mg/dL (8-23); Calcium 8.5 mg/dL (8.6-10.3); Carbon Dioxide 24 mEq/L (23-29); Chloride 103 mEq/L (98-107); Glucose 109 mg/dL (70-105); Magnesium 2.2 mg/dL (1.6-2.6); Osmolality,Calculated 281 (280-300); Potassium 4.4 mEq/L (3.5-5.1); Sodium 133 mEq/L (136-145); eGFR For African Americans > 60 (> 60); eGFR For Non-African Americans 60 (> 60)
[2019-09-07 06:14] LABS: ABG Base Excess -1 mEq/L (-2 to 3); ABG HCO3 24 mEq/L (21-27); ABG Oxygen Saturation 99 % (95-98); ABG PCO2 39 mmHg (35-45); ABG PO2 132 mmHg (85-104); ABG TCO2 25 mEq/L (20-26); Blood Gas Modality ASSIST CONTROL; Blood Gas VT 700 cc
[2019-09-07 07:37] LABS: Phosphorous 4.3 mg/dL (2.7-4.5)
[2019-09-07] MEDS ORDERED: Dexmedetomidine HCl 400 MCG/100 ML MLS IVC SCH (07:45)
[2019-09-07] MEDS: Chlorhexidine Rinse 15 ML MOUTHWASH MM SCH ×2 (07:46→20:01)
[2019-09-07] MEDS: Pantoprazole 40 MG VIAL IVP SCH (07:46)
[2019-09-07] MEDS: Furosemide 20 MG/2 ML VIAL IVP SCH ×2 (07:46→16:48)
[2019-09-07 07:54] LABS: ABG Ionized Calcium 1.14 mmol/L (1.15-1.35)
[2019-09-07] MEDS ORDERED: Dexmedetomidine HCl 400 MCG/100 ML MLS IVC ONE (08:11)
[2019-09-07] MEDS ORDERED: Aspirin Enteric Coated 81 MG Tablet PO SCH (09:00)
[2019-09-07] MEDS: Insulin Human Regular 100 UNIT in 0.9 % Sodium Chloride 100 ML IVC SCH (13:11)
[2019-09-07] MEDS: Norepinephrine 4 MG in 0.9 % Sodium Chloride 250 ML IVC SCH (13:12)
[2019-09-07] MEDS: 0.9 % Sodium Chloride w KCl 20 MEQ/1,000 ML MLS IVC SCH ×2 (13:16→14:39)
[2019-09-07] MEDS ORDERED: 0.9 % Sodium Chloride 500 ML ONE (13:28)
[2019-09-07 13:33] LABS: ABG Base Excess 1 mEq/L (-2 to 3); ABG HCO3 26 mEq/L (21-27); ABG Oxygen Saturation 99 % (95-98); ABG PCO2 39 mmHg (35-45); ABG PH 7.43 pH Units (7.32-7.45); ABG PO2 155 mmHg (85-104); ABG TCO2 27 mEq/L (20-26); Blood Gas Modality CPAP/PS; Blood Gas Pressure Support 5 cm H2O
[2019-09-07] MEDS: *HR* OxyCODONE/APAP 5/325 TABLET PO PRN ×2 (16:47→22:29)
[2019-09-07] MEDS ORDERED: Insulin LISPRO 300 UNITS/3 ML VIAL SQ SCH (21:00)
[2019-09-08] MEDS: *HR* OxyCODONE/APAP 5/325 TABLET PO PRN ×4 (02:19→20:58)
[2019-09-08] MEDS: niCARdipine 20 MG/200 ML MLS IVC SCH ×2 (05:08→05:38)
[2019-09-08 05:12] LABS: Basophils % 0.4 %; Eosinophils # 1.1 K/mcL (0.0-0.6); Eosinophils % 10.6 %; Hematocrit 32.4 % (37.5-50.1); Hemoglobin 11.6 g/dL (12.9-16.9); Immature Granulocytes % 0.7 % (0-4); Lymphocytes # 1.8 K/mcL (0.6-4.6); Lymphocytes % 16.5 %; Mean Corpuscular HGB Conc 35.8 g/dL (31.6-35.5); Mean Corpuscular Hemoglobin 33.1 pg (28.0-33.3); Mean Corpuscular Volume 92.6 fL (83.0-100.0); Mean Platelet Volume 9.9 fL (9.4-12.4); Monocytes # 0.8 K/mcL (0.0-1.3); Monocytes % 7.9 %; Neutrophils # 6.8 K/mcL (1.6-8.9); Platelet Count 128 K/mcL (140-400); Red Cell Distribution Width 13.9 % (11.5-14.5); Segmented Neutrophils % 63.9 %; White Blood Count 10.6 K/mcL (4.3-11.1)
[2019-09-08 05:39] LABS: BUN/Creatinine Ratio 22 (6-26); Blood Urea Nitrogen 23 mg/dL (8-23); Calcium 8.3 mg/dL (8.6-10.3); Carbon Dioxide 25 mEq/L (23-29); Chloride 98 mEq/L (98-107); Glucose 156 mg/dL (70-105); Osmolality,Calculated 279 (280-300); Potassium 4.5 mEq/L (3.5-5.1); Sodium 131 mEq/L (136-145); eGFR For African Americans > 60 (> 60); eGFR For Non-African Americans > 60 (> 60)
[2019-09-08] MEDS ORDERED: Acetaminophen 325 MG TABLET PO PRN (07:20)
[2019-09-08] MEDS ORDERED: D5% in Water 1,000 ML IVC PRN (07:20)
[2019-09-08] MEDS ORDERED: *HR* Dextrose 50 % in Water (Syg) 50 ML SYRINGE IVP PRN (07:20)
[2019-09-08] MEDS ORDERED: Insulin Regular, Human 100 UNIT/ML IV PRN (07:20)
[2019-09-08] MEDS ORDERED: Nitroglycerin 0.4 MG TAB.SUBL SL PRN ×2 (07:20)
[2019-09-08] MEDS ORDERED: Naloxone 0.4 MG/ML INJ IVP PRN (07:20)
[2019-09-08] MEDS ORDERED: Ondansetron 4 MG/2 ML VIAL IVP PRN (07:20)
[2019-09-08] MEDS ORDERED: Dextrose Gel 15 GM/37.5 ML TUBE PO PRN ×2 (07:20)
[2019-09-08] MEDS ORDERED: Insulin LISPRO 300 UNITS/3 ML VIAL SQ SCH (07:30)
[2019-09-08] MEDS: Insulin LISPRO 300 UNITS/3 ML VIAL SQ SCH ×4 (08:12→21:02)
[2019-09-08] MEDS: Chlorhexidine Rinse 15 ML MOUTHWASH MM SCH ×2 (08:23→20:57)
[2019-09-08] MEDS: Cyanocobalamin (B-12) 1,000 MCG TABLET PO SCH (08:24)
[2019-09-08] MEDS: Furosemide 20 MG/2 ML VIAL IVP SCH ×2 (08:24→17:05)
[2019-09-08] MEDS: Lisinopril 20 MG TABLET PO SCH (08:25)
[2019-09-08] MEDS: Aspirin Enteric Coated 81 MG Tablet PO SCH (08:25)
[2019-09-08] MEDS: *HR* Metformin 500 MG TABLET PO SCH (08:25)
[2019-09-08] MEDS: amLODIPine 5 MG TABLET PO SCH (08:25)
[2019-09-08] MEDS ORDERED: Pantoprazole 40 MG VIAL IVP SCH (09:00)
[2019-09-08] MEDS ORDERED: *HR* Heparin 5,000 UNIT/ML VIAL SQ SCH (18:00)
[2019-09-09 04:37] LABS: Basophils % 0.2 %; Eosinophils # 0.6 K/mcL (0.0-0.6); Eosinophils % 6.4 %; Hematocrit 29.4 % (37.5-50.1); Hemoglobin 10.3 g/dL (12.9-16.9); Immature Granulocytes % 0.8 % (0-4); Lymphocytes # 1.6 K/mcL (0.6-4.6); Lymphocytes % 17.7 %; Mean Corpuscular Volume 91.3 fL (83.0-100.0); Mean Platelet Volume 10.4 fL (9.4-12.4); Monocytes # 0.7 K/mcL (0.0-1.3); Monocytes % 7.7 %; Platelet Count 129 K/mcL (140-400); Red Blood Count 3.22 M/mcL (4.19-5.50); Red Cell Distribution Width 13.4 % (11.5-14.5); Segmented Neutrophils % 67.2 %
[2019-09-09 04:59] LABS: Potassium 3.9 mEq/L (3.5-5.1)
[2019-09-09] MEDS ORDERED: MOM Conc 10 ML UD.LIQ PO PRN (08:01)
[2019-09-09] MEDS: Lisinopril 20 MG TABLET PO SCH (08:27)
[2019-09-09] MEDS: amLODIPine 5 MG TABLET PO SCH (08:27)
[2019-09-09] MEDS: Cyanocobalamin (B-12) 1,000 MCG TABLET PO SCH (08:27)
[2019-09-09] MEDS: Aspirin Enteric Coated 81 MG Tablet PO SCH (08:27)
[2019-09-09] MEDS: Chlorhexidine Rinse 15 ML MOUTHWASH MM SCH ×2 (08:28→20:25)
[2019-09-09] MEDS: *HR* Metformin 500 MG TABLET PO SCH (08:28)
[2019-09-09] MEDS: Furosemide 20 MG/2 ML VIAL IVP SCH ×2 (08:28→15:58)
[2019-09-09] MEDS: Insulin LISPRO 300 UNITS/3 ML VIAL SQ SCH ×4 (08:36→20:25)
[2019-09-09 14:52] LABS: ABG Base Excess 1 mEq/L (-2 to 3); ABG Chloride 101 mEq/L (98-107); ABG Glucose 136 mg/dL (60-95); ABG HCO3 25 mEq/L (21-27); ABG Ionized Calcium 1.21 mmol/L (1.15-1.35); ABG Oxygen Saturation 100 % (95-98); ABG PCO2 40 mmHg (35-45); ABG PH 7.42 pH Units (7.32-7.45); ABG PO2 611 mmHg (85-104); ABG TCO2 27 mEq/L (20-26)
[2019-09-10 01:53] LABS: Basophils % 0.3 %; Eosinophils # 0.9 K/mcL (0.0-0.6); Eosinophils % 9.6 %; Hematocrit 30.6 % (37.5-50.1); Hemoglobin 10.8 g/dL (12.9-16.9); Immature Granulocytes % 0.7 % (0-4); Lymphocytes # 1.5 K/mcL (0.6-4.6); Lymphocytes % 16.6 %; Mean Corpuscular HGB Conc 35.3 g/dL (31.6-35.5); Mean Corpuscular Volume 90.5 fL (83.0-100.0); Mean Platelet Volume 10.3 fL (9.4-12.4); Monocytes # 0.8 K/mcL (0.0-1.3); Monocytes % 8.5 %; Neutrophils # 5.8 K/mcL (1.6-8.9); Platelet Count 181 K/mcL (140-400); Red Blood Count 3.38 M/mcL (4.19-5.50); Red Cell Distribution Width 13.5 % (11.5-14.5); Segmented Neutrophils % 64.3 %
[2019-09-10 02:09] LABS: Calcium 8.8 mg/dL (8.6-10.3); Potassium 4.2 mEq/L (3.5-5.1)
[2019-09-10] MEDS: *HR* Metformin 500 MG TABLET PO SCH (08:56)
[2019-09-10] MEDS: amLODIPine 5 MG TABLET PO SCH (08:56)
[2019-09-10] MEDS: Insulin LISPRO 300 UNITS/3 ML VIAL SQ SCH ×4 (08:56→21:14)
[2019-09-10] MEDS: Cyanocobalamin (B-12) 1,000 MCG TABLET PO SCH (08:56)
[2019-09-10] MEDS: Aspirin Enteric Coated 81 MG Tablet PO SCH (08:56)
[2019-09-10] MEDS: Chlorhexidine Rinse 15 ML MOUTHWASH MM SCH ×2 (08:56→21:12)
[2019-09-10] MEDS: Lisinopril 20 MG TABLET PO SCH (08:56)
[2019-09-11 03:12] LABS: BUN/Creatinine Ratio 35 (6-26); Blood Urea Nitrogen 42 mg/dL (8-23); Calcium 8.4 mg/dL (8.6-10.3); Carbon Dioxide 26 mEq/L (23-29); Chloride 104 mEq/L (98-107); Glucose 132 mg/dL (70-105); Osmolality,Calculated 282 (280-300); Potassium 4.1 mEq/L (3.5-5.1); Sodium 130 mEq/L (136-145); eGFR For African Americans > 60 (> 60); eGFR For Non-African Americans 58 (> 60)
[2019-09-11] MEDS: amLODIPine 5 MG TABLET PO SCH (07:50)
[2019-09-11] MEDS: Lisinopril 20 MG TABLET PO SCH (07:50)
[2019-09-11] MEDS: *HR* Metformin 500 MG TABLET PO SCH (07:50)
[2019-09-11] MEDS: Aspirin Enteric Coated 81 MG Tablet PO SCH (07:50)
[2019-09-11] MEDS: Cyanocobalamin (B-12) 1,000 MCG TABLET PO SCH (07:50)
[2019-09-11] MEDS: Insulin LISPRO 300 UNITS/3 ML VIAL SQ SCH ×4 (07:51→20:16)
[2019-09-11] MEDS: Chlorhexidine Rinse 15 ML MOUTHWASH MM SCH ×2 (07:51→20:13)
[2019-09-11] MEDS: *HR* OxyCODONE/APAP 5/325 TABLET PO PRN (20:12)
[2019-09-12] MEDS: *HR* OxyCODONE/APAP 5/325 TABLET PO PRN ×2 (05:53→18:23)
[2019-09-12] MEDS: Insulin LISPRO 300 UNITS/3 ML VIAL SQ SCH ×4 (08:04→20:36)
[2019-09-12] MEDS: Chlorhexidine Rinse 15 ML MOUTHWASH MM SCH ×2 (08:04→20:35)
[2019-09-12] MEDS: Lisinopril 20 MG TABLET PO SCH (08:05)
[2019-09-12] MEDS: Aspirin Enteric Coated 81 MG Tablet PO SCH (08:05)
[2019-09-12] MEDS: amLODIPine 5 MG TABLET PO SCH (08:05)
[2019-09-12] MEDS: *HR* Metformin 500 MG TABLET PO SCH (08:05)
[2019-09-12] MEDS: Cyanocobalamin (B-12) 1,000 MCG TABLET PO SCH (08:05)
[2019-09-13] MEDS: *HR* OxyCODONE/APAP 5/325 TABLET PO PRN ×2 (04:05→11:10)
[2019-09-13 08:14] VITALS: BP 144/68
[2019-09-13] MEDS: Chlorhexidine Rinse 15 ML MOUTHWASH MM SCH (08:44)
[2019-09-13] MEDS: Insulin LISPRO 300 UNITS/3 ML VIAL SQ SCH (08:44)
[2019-09-13] MEDS: Lisinopril 20 MG TABLET PO SCH (08:45)
[2019-09-13] MEDS: Aspirin Enteric Coated 81 MG Tablet PO SCH (08:45)
[2019-09-13] MEDS: amLODIPine 5 MG TABLET PO SCH (08:45)
[2019-09-13] MEDS: Cyanocobalamin (B-12) 1,000 MCG TABLET PO SCH (08:45)
[2019-09-13] MEDS: *HR* Metformin 500 MG TABLET PO SCH (08:45)
== END 2019-09-13 11:14 | disposition home health service (06) | DRG 233 ==
LOC: 2ANU 21:49 → EMEROOARM 21:49 → SUATTDRO 09-01 00:13 → 2ANU 09-01 00:44 → ICNU 09-03 15:13 → 2NNU 09-08 17:29
PROVIDERS: ADMIT Family Medicine; ATTEND Internal Medicine

== ENCOUNTER 2021-02-25 18:06 | Inpatient (IN) ==
[2021-02-25] MEDS ORDERED: Furosemide 40 MG/4 ML VIAL IVP ONE (18:46)
[2021-02-25 18:59] LABS: Nucleated Red Blood Cells 0.1 /100 WBC (0); Red Blood Count 2.47 M/mcL (4.19-5.50)
[2021-02-25 19:01] LABS: Hematocrit 24.4 % (37.5-50.1); Hemoglobin 6.6 g/dL (12.9-16.9); Immature Platelets 8.1 % (1.1-6.1); Mean Corpuscular Hemoglobin 26.7 pg (28.0-33.3); Mean Corpuscular Volume 98.8 fL (83.0-100.0); Mean Platelet Volume 9.9 fL (9.4-12.4); Red Cell Distribution Width 20.9 % (11.5-14.5)
[2021-02-25 19:07] LABS: Prothrombin Time 33.8 Seconds (9.4-12.1)
[2021-02-25 19:10] LABS: Activated Partial Thrombo Time 32.5 Seconds (26.0-36.0)
[2021-02-25 19:19] LABS: Alanine Aminotransferase 16 Units/L (7-52); Albumin 3.5 g/dL (3.5-5.7); Alkaline Phosphatase 135 Units/L (34-104); Aspartate Amino Transferase 34 Units/L (13-39); BUN/Creatinine Ratio 26 (6-26); Bilirubin,Direct 0.5 mg/dL (0.0-0.2); Bilirubin,Indirect 0.7 mg/dL (0.0-1.0); Bilirubin,Total 1.2 mg/dL (0.3-1.0); Blood Urea Nitrogen 26 mg/dL (8-23); Calcium 8.7 mg/dL (8.6-10.3); Carbon Dioxide 23 mEq/L (23-29); Chloride 103 mEq/L (98-107); Globulin 3.5 g/dL (2.4-3.5); Glucose 113 mg/dL (70-105); Osmolality,Calculated 284 (280-300); Potassium 4.3 mEq/L (3.5-5.1); Sodium 134 mEq/L (136-145); Troponin I < 0.03 ng/mL (< 0.04); eGFR For African Americans > 60 (> 60); eGFR For Non-African Americans > 60 (> 60)
[2021-02-25 19:26] LABS: Platelet Count 56 K/mcL (140-400)
[2021-02-25 19:30] LABS: White Blood Count 175.4 K/mcL (4.3-11.1)
[2021-02-25 19:40] LABS: Anisocytosis 1+ (Not Present); Hypochromasia Present (Not Present); Lymphocytes # 159.6 K/mcL (0.6-4.6); Monocytes # 5.3 K/mcL (0.0-1.3); Neutrophils # 3.5 K/mcL (1.6-8.9); Ovalocytes 1+ (Not Present); Platelet Estimate Marked Decrease (Normal); Poikilocytosis 1+ (Not Present); Polychromasia 1+ (Not Present); Reactive Lymphocytes Present (Not Present); Smudge Cells Present (Not Present); Stomatocytes 1+ (Not Present)
[2021-02-25] MEDS ORDERED: Ondansetron 4 MG/2 ML VIAL IVP PRN (21:51)
[2021-02-25] MEDS ORDERED: Naloxone 0.4 MG/ML INJ IVP PRN (21:51)
[2021-02-25] MEDS ORDERED: Perflutren Lipid Microsphere 1.3 ML in 0.9 % Sodium Chloride 8.7 ML IVP PRN (21:52)
[2021-02-25] MEDS ORDERED: 0.9 % Sodium Chloride 250 ML ONE (23:15)
[2021-02-25 23:37] LABS: Phosphorous 2.6 mg/dL (2.7-4.5); Uric Acid 4.4 mg/dL (2.3-7.6)
[2021-02-25] MEDS: Cefepime HCl 1,000 MG in Water for inj. (sterile) 10 ML IVP SCH (23:43)
[2021-02-26 00:02] LABS: Folate 6.4 ng/mL (3.0-16.0)
[2021-02-26] MEDS: methylPREDNISolone 125 MG/2 ML VIAL IVP SCH ×4 (01:25→23:38)
[2021-02-26] MEDS ORDERED: Nitroglycerin 0.4 MG TAB.SUBL SL ONE (01:44)
[2021-02-26] MEDS ORDERED: methylPREDNISolone 125 MG/2 ML VIAL IVP SCH (06:00)
[2021-02-26 06:10] LABS: Retculocyte # 0.1 M/mcL (0.05-0.10); Reticulocyte % 3.6 % (1.6-2.8)
[2021-02-26 06:11] LABS: Hematocrit 25.4 % (37.5-50.1); Immature Platelets 6.7 % (1.1-6.1); Mean Corpuscular HGB Conc 27.6 g/dL (31.6-35.5); Mean Corpuscular Hemoglobin 26.4 pg (28.0-33.3); Mean Corpuscular Volume 95.8 fL (83.0-100.0); Nucleated Red Blood Cells 0.2 /100 WBC (0); Red Blood Count 2.65 M/mcL (4.19-5.50); Red Cell Distribution Width 21.3 % (11.5-14.5)
[2021-02-26 06:16] LABS: INR 2.7; Prothrombin Time 30.7 Seconds (9.4-12.1)
[2021-02-26 06:19] LABS: Activated Partial Thrombo Time 31.5 Seconds (26.0-36.0)
[2021-02-26 06:25] LABS: BUN/Creatinine Ratio 26 (6-26); Blood Urea Nitrogen 27 mg/dL (8-23); Calcium 8.6 mg/dL (8.6-10.3); Carbon Dioxide 24 mEq/L (23-29); Chloride 103 mEq/L (98-107); Glucose 124 mg/dL (70-105); Lactate Dehydrogenase 228 Units/L (140-271); Osmolality,Calculated 285 (280-300); Potassium 4.7 mEq/L (3.5-5.1); Sodium 134 mEq/L (136-145); eGFR For African Americans > 60 (> 60); eGFR For Non-African Americans > 60 (> 60)
[2021-02-26 06:59] LABS: Platelet Count 57 K/mcL (140-400)
[2021-02-26 07:03] LABS: White Blood Count 199.5 K/mcL (4.3-11.1)
[2021-02-26 08:48] LABS: Platelet Estimate Decreased (Normal)
[2021-02-26] MEDS: Furosemide 20 MG/2 ML VIAL IVP SCH ×2 (09:17→19:47)
[2021-02-26] MEDS: Cefepime HCl 1,000 MG in Water for inj. (sterile) 10 ML IVP SCH ×3 (09:17→23:38)
[2021-02-26] MEDS ORDERED: Dextrose Gel 15 GM/37.5 ML TUBE PO PRN ×2 (09:19)
[2021-02-26] MEDS ORDERED: *HR* Dextrose 50 % in Water (Vial) 50 ML VIAL IVP PRN (09:19)
[2021-02-26] MEDS ORDERED: D5% in Water 1,000 ML IVC PRN (09:19)
[2021-02-26] MEDS ORDERED: GI Cocktail 40 ML EACH PO ONE (11:00)
[2021-02-26] MEDS ORDERED: Aspirin 325 MG TABLET PO ONE (11:00)
[2021-02-26] MEDS ORDERED: Morphine Sulfate 2 MG/ML SYRINGE IVP PRN (11:02)
[2021-02-26] MEDS: Nitroglycerin 0.4 MG TAB.SUBL SL PRN ×3 (11:20→11:31)
[2021-02-26] MEDS: Insulin LISPRO 300 UNITS/3 ML VIAL SUBQ SCH ×3 (11:54→23:45)
[2021-02-26 12:26] LABS: INR 2.8
[2021-02-26 13:23] LABS: INR 2.6; Prothrombin Time 29.3 Seconds (9.4-12.1)
[2021-02-26] MEDS ORDERED: 0.9 % Sodium Chloride 250 ML ONE (16:26)
[2021-02-26] MEDS ORDERED: Warfarin perPT PO PRN (18:00)
[2021-02-26] MEDS: allopurinoL 300 MG TABLET PO SCH (19:40)
[2021-02-27 02:55] LABS: Hematocrit 25.8 % (37.5-50.1); Immature Platelets 6.1 % (1.1-6.1); Mean Corpuscular HGB Conc 27.1 g/dL (31.6-35.5); Mean Corpuscular Hemoglobin 26.1 pg (28.0-33.3); Mean Corpuscular Volume 96.3 fL (83.0-100.0); Mean Platelet Volume 10.9 fL (9.4-12.4); Red Blood Count 2.68 M/mcL (4.19-5.50); Red Cell Distribution Width 21.7 % (11.5-14.5)
[2021-02-27 03:00] LABS: INR 1.8; Prothrombin Time 20.2 Seconds (9.4-12.1)
[2021-02-27 03:09] LABS: Calcium 8.1 mg/dL (8.6-10.3); Magnesium 2.1 mg/dL (1.6-2.6); Platelet Count 63 K/mcL (140-400); Potassium 4.9 mEq/L (3.5-5.1); Uric Acid 6.8 mg/dL (2.3-7.6); White Blood Count 199.7 K/mcL (4.3-11.1)
[2021-02-27 04:53] LABS: Lymphocytes # 169.8 K/mcL (0.6-4.6); Platelet Estimate Decreased (Normal)
[2021-02-27] MEDS: Insulin LISPRO 300 UNITS/3 ML VIAL SUBQ SCH ×4 (06:00→23:41)
[2021-02-27] MEDS ORDERED: Regadenoson 0.4 MG/5 ML SYRINGE IVP ONE (06:24)
[2021-02-27] MEDS: Hydroxyurea 500 MG CAPSULE PO SCH (09:12)
[2021-02-27] MEDS: methylPREDNISolone 125 MG/2 ML VIAL IVP SCH ×3 (09:12→23:43)
[2021-02-27] MEDS: allopurinoL 300 MG TABLET PO SCH (09:12)
[2021-02-27] MEDS: Aspirin 81 MG TAB.CHEW PO SCH (09:12)
[2021-02-27] MEDS: Cefepime HCl 1,000 MG in Water for inj. (sterile) 10 ML IVP SCH (09:13)
[2021-02-27] MEDS ORDERED: Cefepime HCl 2,000 MG in Water for inj. (sterile) 20 ML IVP SCH (10:00)
[2021-02-27] MEDS ORDERED: *HR* FentaNYL (PF) 100 MCG/2 ML VIAL ONE (13:50)
[2021-02-27] MEDS ORDERED: 0.9 % Sodium Chloride 500 ML ONE (13:51)
[2021-02-27] MEDS ORDERED: 0.9 % Sodium Chloride 250 ML ONE (15:40)
[2021-02-27] MEDS: Cefepime HCl 2,000 MG in Water for inj. (sterile) 20 ML IVP SCH (21:03)
[2021-02-28] MEDS: Acetaminophen 325 MG TABLET PO PRN (01:16)
[2021-02-28 02:35] LABS: Hematocrit 27.5 % (37.5-50.1); Hemoglobin 7.6 g/dL (12.9-16.9); Mean Corpuscular HGB Conc 27.6 g/dL (31.6-35.5); Mean Corpuscular Volume 94.2 fL (83.0-100.0); Mean Platelet Volume 10.5 fL (9.4-12.4); Red Blood Count 2.92 M/mcL (4.19-5.50); Red Cell Distribution Width 20.8 % (11.5-14.5)
[2021-02-28 02:37] LABS: INR 1.4; Prothrombin Time 16.5 Seconds (9.4-12.1)
[2021-02-28 02:41] LABS: Platelet Count 47 K/mcL (140-400)
[2021-02-28 02:42] LABS: White Blood Count 170.6 K/mcL (4.3-11.1)
[2021-02-28 02:49] LABS: BUN/Creatinine Ratio 40 (6-26); Blood Urea Nitrogen 52 mg/dL (8-23); Carbon Dioxide 23 mEq/L (23-29); Chloride 102 mEq/L (98-107); Glucose 233 mg/dL (70-105); Osmolality,Calculated 296 (280-300); Potassium 4.6 mEq/L (3.5-5.1); Sodium 132 mEq/L (136-145); eGFR For African Americans > 60 (> 60); eGFR For Non-African Americans 52 (> 60)
[2021-02-28 04:06] LABS: Lymphocytes # 160.4 K/mcL (0.6-4.6); Neutrophils # 10.2 K/mcL (1.6-8.9)
[2021-02-28 04:07] LABS: Anisocytosis 1+ (Not Present); Platelet Estimate Decreased (Normal)
[2021-02-28 04:09] LABS: Microcytosis Present (Not Present); Reactive Lymphocytes Present (Not Present)
[2021-02-28] MEDS: Insulin LISPRO 300 UNITS/3 ML VIAL SUBQ SCH ×3 (06:05→18:42)
[2021-02-28] MEDS ORDERED: *HR* Warfarin 5 MG TABLET PO ONE ×2 (07:16→18:00)
[2021-02-28] MEDS ORDERED: *HR* Heparin 5,000 UNIT/ML VIAL IVP PRN ×2 (08:53)
[2021-02-28] MEDS ORDERED: *HR* Heparin 5,000 UNIT/ML VIAL IVP ONE (08:53)
[2021-02-28] MEDS ORDERED: Furosemide 20 MG/2 ML VIAL IVP SCH (09:00)
[2021-02-28] MEDS ORDERED: Heparin 25,000UNIT/250ML 1/2NS 25,000 UNIT/250 ML IV.SOLN IVC SCH (09:00)
[2021-02-28] MEDS ORDERED: Furosemide 20 MG TABLET PO SCH (09:00)
[2021-02-28 10:19] LABS: Hematocrit 27.2 % (37.5-50.1); Hemoglobin 7.4 g/dL (12.9-16.9); Immature Platelets 6.3 % (1.1-6.1); Mean Corpuscular HGB Conc 27.2 g/dL (31.6-35.5); Mean Corpuscular Hemoglobin 25.7 pg (28.0-33.3); Mean Corpuscular Volume 94.4 fL (83.0-100.0); Mean Platelet Volume 11.5 fL (9.4-12.4); Red Blood Count 2.88 M/mcL (4.19-5.50); Red Cell Distribution Width 20.7 % (11.5-14.5)
[2021-02-28 10:25] LABS: Heparin anti-factor XA UFH < 0.04 IU/mL (0.30-0.70)
[2021-02-28 10:26] LABS: INR 1.5; Prothrombin Time 16.8 Seconds (9.4-12.1)
[2021-02-28 10:29] LABS: White Blood Count 176.7 K/mcL (4.3-11.1)
[2021-02-28] MEDS: methylPREDNISolone 125 MG/2 ML VIAL IVP SCH ×3 (11:21→23:37)
[2021-02-28] MEDS: Cefepime HCl 2,000 MG in Water for inj. (sterile) 20 ML IVP SCH ×2 (11:22→20:56)
[2021-02-28] MEDS: Hydroxyurea 500 MG CAPSULE PO SCH (11:23)
[2021-02-28] MEDS: Aspirin 81 MG TAB.CHEW PO SCH (11:23)
[2021-02-28] MEDS: allopurinoL 300 MG TABLET PO SCH (11:23)
[2021-02-28] MEDS ORDERED: Warfarin perPT PO PRN (18:00)
[2021-03-01] MEDS: Insulin LISPRO 300 UNITS/3 ML VIAL SUBQ SCH ×2 (00:18→05:24)
[2021-03-01 01:41] LABS: Immature Granulocytes % 0.3 % (0-4); Red Cell Distribution Width 20.9 % (11.5-14.5); Segmented Neutrophils % 3.5 %
[2021-03-01 01:43] LABS: Hematocrit 27.7 % (37.5-50.1); Hemoglobin 7.4 g/dL (12.9-16.9); Immature Platelets 6.6 % (1.1-6.1); Lymphocytes % 94.7 %; Mean Corpuscular HGB Conc 26.7 g/dL (31.6-35.5); Mean Corpuscular Hemoglobin 25.9 pg (28.0-33.3); Mean Corpuscular Volume 96.9 fL (83.0-100.0); Mean Platelet Volume 10.6 fL (9.4-12.4); Monocytes % 1.5 %; Red Blood Count 2.86 M/mcL (4.19-5.50)
[2021-03-01 01:44] LABS: Monocytes # 2.6 K/mcL (0.0-1.3); Neutrophils # 6.2 K/mcL (1.6-8.9); Platelet Count 45 K/mcL (140-400)
[2021-03-01 01:46] LABS: White Blood Count 176.3 K/mcL (4.3-11.1)
[2021-03-01 01:53] LABS: INR 1.6; Prothrombin Time 17.7 Seconds (9.4-12.1)
[2021-03-01 01:58] LABS: BUN/Creatinine Ratio 42 (6-26); Blood Urea Nitrogen 54 mg/dL (8-23); Calcium 7.7 mg/dL (8.6-10.3); Carbon Dioxide 22 mEq/L (23-29); Chloride 103 mEq/L (98-107); Glucose 223 mg/dL (70-105); Osmolality,Calculated 298 (280-300); Potassium 4.8 mEq/L (3.5-5.1); Sodium 133 mEq/L (136-145); Uric Acid 5.2 mg/dL (2.3-7.6); eGFR For African Americans > 60 (> 60); eGFR For Non-African Americans 53 (> 60)
[2021-03-01] MEDS: Acetaminophen 325 MG TABLET PO PRN (02:26)
[2021-03-01] MEDS ORDERED: Furosemide 20 MG/2 ML VIAL IVP ONE (07:10)
[2021-03-01 07:13] VITALS: BP 134/64
[2021-03-01] MEDS: allopurinoL 300 MG TABLET PO SCH (07:46)
[2021-03-01] MEDS: Hydroxyurea 500 MG CAPSULE PO SCH (07:46)
[2021-03-01] MEDS: Aspirin 81 MG TAB.CHEW PO SCH (07:46)
[2021-03-01] MEDS: Cefepime HCl 2,000 MG in Water for inj. (sterile) 20 ML IVP SCH (07:47)
[2021-03-01] MEDS: methylPREDNISolone 125 MG/2 ML VIAL IVP SCH (07:47)
[2021-03-01] MEDS ORDERED: *HR* Warfarin 5 MG TABLET PO ONE (18:00)
== END 2021-03-01 11:06 | disposition home or self-care (01) | DRG 823 ==
LOC: EMEROOARM 18:06 → 2ANU 18:06 → SUATTDRO 21:48 → 2ANU 22:34
PROVIDERS: ADMIT Internal Medicine; ATTEND Internal Medicine

== ENCOUNTER 2021-03-15 13:21 | Inpatient (IN) ==
[2021-03-15] MEDS ORDERED: Isovue-370 500 ML BOTTLE IVP ONE (13:35)
[2021-03-15 14:21] LABS: Nucleated Red Blood Cells 0.1 /100 WBC (0)
[2021-03-15 14:23] LABS: Hematocrit 22.8 % (37.5-50.1); Hemoglobin 6.5 g/dL (12.9-16.9); Immature Platelets 6.2 % (1.1-6.1); Mean Corpuscular HGB Conc 28.5 g/dL (31.6-35.5); Mean Corpuscular Hemoglobin 27.1 pg (28.0-33.3); Mean Platelet Volume 11.8 fL (9.4-12.4); Red Cell Distribution Width 18.4 % (11.5-14.5)
[2021-03-15 14:36] LABS: Alanine Aminotransferase 10 Units/L (7-52); Albumin 3.1 g/dL (3.5-5.7); Albumin/Globulin Ratio 1.1 (1.1-2.2); Alkaline Phosphatase 151 Units/L (34-104); Aspartate Amino Transferase 27 Units/L (13-39); BUN/Creatinine Ratio 21 (6-26); Bilirubin,Direct 0.4 mg/dL (0.0-0.2); Bilirubin,Indirect 0.6 mg/dL (0.0-1.0); Blood Urea Nitrogen 28 mg/dL (8-23); C-Reactive Protein 29 mg/L (Less than 10); Calcium 7.5 mg/dL (8.6-10.3); Carbon Dioxide 22 mEq/L (23-29); Chloride 106 mEq/L (98-107); Globulin 2.7 g/dL (2.4-3.5); Glucose 173 mg/dL (70-105); Lactate Dehydrogenase 264 Units/L (140-271); Lipase 10 Units/L (11-82); Osmolality,Calculated 292 (280-300); Potassium 4.5 mEq/L (3.5-5.1); Sodium 136 mEq/L (136-145); Total Protein 5.8 g/dL (6.4-8.9); Uric Acid 3.3 mg/dL (2.3-7.6); eGFR For African Americans > 60 (> 60); eGFR For Non-African Americans 50 (> 60)
[2021-03-15 14:46] LABS: Platelet Count 47 K/mcL (140-400); White Blood Count 53.5 K/mcL (4.3-11.1)
[2021-03-15 15:06] LABS: Basophils # 0.5 K/mcL (0.0-0.2); Lymphocytes # 51.4 K/mcL (0.6-4.6); Monocytes # 0.5 K/mcL (0.0-1.3); Neutrophils # 1.1 K/mcL (1.6-8.9); Smudge Cells Present (Not Present)
[2021-03-15 15:10] LABS: Platelet Estimate Decreased (Normal)
[2021-03-15] MEDS ORDERED: Ondansetron 4 MG/2 ML VIAL IVP PRN (16:52)
[2021-03-15] MEDS ORDERED: Naloxone 0.4 MG/ML INJ IVP PRN (16:52)
[2021-03-15] MEDS ORDERED: MethylPREDNISolone 40 MG/ML VIAL IVP PRN (16:54)
[2021-03-15] MEDS ORDERED: 0.9 % Sodium Chloride 250 ML ONE ×2 (17:04→21:46)
[2021-03-15] MEDS ORDERED: Warfarin perPT PO PRN (18:00)
[2021-03-15 18:34] LABS: INR 3.5; Prothrombin Time 38.9 Seconds (9.4-12.1)
[2021-03-16] MEDS ORDERED: *HR* LORazepam 2 MG/ML VIAL IVP PRN
[2021-03-16] MEDS ORDERED: Prochlorperazine 10 MG/2 ML VIAL IVP PRN
[2021-03-16] MEDS: Furosemide 40 MG/4 ML VIAL IVP SCH ×2 (00:09→08:43)
[2021-03-16 02:38] LABS: Hematocrit 29.5 % (37.5-50.1); Hemoglobin 8.3 g/dL (12.9-16.9); Immature Platelets 7.3 % (1.1-6.1); Mean Corpuscular HGB Conc 28.1 g/dL (31.6-35.5); Mean Corpuscular Hemoglobin 27.2 pg (28.0-33.3); Mean Corpuscular Volume 96.7 fL (83.0-100.0); Mean Platelet Volume 10.7 fL (9.4-12.4); Red Blood Count 3.05 M/mcL (4.19-5.50); Red Cell Distribution Width 17.4 % (11.5-14.5)
[2021-03-16 02:40] LABS: Platelet Count 58 K/mcL (140-400)
[2021-03-16 02:41] LABS: White Blood Count 119.7 K/mcL (4.3-11.1)
[2021-03-16 02:46] LABS: INR 5.2; Prothrombin Time 57.2 Seconds (9.4-12.1)
[2021-03-16 02:55] LABS: Calcium 7.5 mg/dL (8.6-10.3); Lymphocytes # 114.9 K/mcL (0.6-4.6); Magnesium 1.8 mg/dL (1.6-2.6); Neutrophils # 4.8 K/mcL (1.6-8.9); Phosphorous 3.9 mg/dL (2.7-4.5)
[2021-03-16 02:56] LABS: Platelet Estimate Decreased (Normal); Reactive Lymphocytes Present (Not Present); Smudge Cells Present (Not Present)
[2021-03-16 03:18] LABS: Folate 5.2 ng/mL (3.0-16.0)
[2021-03-16] MEDS ORDERED: Acetaminophen 325 MG TABLET PO PRN (06:14)
[2021-03-16] MEDS: Aspirin 81 MG TAB.CHEW PO SCH (08:43)
[2021-03-16] MEDS: allopurinoL 300 MG TABLET PO SCH (08:43)
[2021-03-16] MEDS: Cyanocobalamin (B-12) 1,000 MCG TABLET PO SCH (08:43)
[2021-03-16] MEDS ORDERED: Famotidine 20 MG/2 ML VIAL IVP ONE (10:30)
[2021-03-16] MEDS ORDERED: Loratadine 10 MG TABLET PO ONE (10:30)
[2021-03-16] MEDS ORDERED: Dexamethasone 10 MG/ML VIAL IVP ONE (10:30)
[2021-03-16] MEDS ORDERED: Acetaminophen 325 MG TABLET PO ONE (10:30)
[2021-03-16] MEDS ORDERED: *HR* Meperidine 25 MG/ML SYRINGE IVP PRN (10:41)
[2021-03-16] MEDS ORDERED: Hydrocortisone Sodium Succ 100 MG/2 ML VIAL IVP PRN (10:42)
[2021-03-16] MEDS ORDERED: EPINEPHrine 1 MG/ML VIAL SQ PRN (10:42)
[2021-03-16] MEDS ORDERED: SODIUM CHLORIDE 0.9% IV SCH ×2 (11:00→11:30)
[2021-03-16] MEDS ORDERED: BENDAMUSTINE IV SCH (11:00)
[2021-03-16] MEDS ORDERED: RITUXIMAB IV SCH (11:30)
[2021-03-16] MEDS ORDERED: Furosemide 40 MG/4 ML VIAL IVP SCH (12:30)
[2021-03-16 12:31] LABS: Uric Acid 3.6 mg/dL (2.3-7.6)
[2021-03-16] MEDS: 0.9 % Sodium Chloride 500 ML IVC SCH ×2 (16:22→20:54)
[2021-03-16 16:53] LABS: Phosphorous 4.2 mg/dL (2.7-4.5); Potassium 5.2 mEq/L (3.5-5.1); Uric Acid 3.8 mg/dL (2.3-7.6)
[2021-03-17 05:47] LABS: Hemoglobin 8.9 g/dL (12.9-16.9)
[2021-03-17 05:49] LABS: Basophils # 0.2 K/mcL (0.0-0.2); Basophils % 0.3 %; Hematocrit 30.5 % (37.5-50.1); Immature Granulocytes % 0.2 % (0-4); Immature Platelets 5.3 % (1.1-6.1); Lymphocytes # 56.2 K/mcL (0.6-4.6); Lymphocytes % 90.7 %; Mean Corpuscular HGB Conc 29.2 g/dL (31.6-35.5); Mean Corpuscular Volume 92.4 fL (83.0-100.0); Mean Platelet Volume 10.7 fL (9.4-12.4); Monocytes % 3.3 %; Segmented Neutrophils % 5.5 %
[2021-03-17 05:56] LABS: Monocytes # 2.1 K/mcL (0.0-1.3)
[2021-03-17 05:57] LABS: Neutrophils # 3.4 K/mcL (1.6-8.9); Platelet Count 65 K/mcL (140-400)
[2021-03-17 06:02] LABS: Prothrombin Time 67.1 Seconds (9.4-12.1)
[2021-03-17 06:03] LABS: INR 6.1
[2021-03-17 06:10] LABS: Albumin 3.2 g/dL (3.5-5.7); Albumin/Globulin Ratio 1.2 (1.1-2.2); Bilirubin,Total 0.7 mg/dL (0.3-1.0); Calcium 7.7 mg/dL (8.6-10.3); Globulin 2.7 g/dL (2.4-3.5); Potassium 5.4 mEq/L (3.5-5.1); Total Protein 5.9 g/dL (6.4-8.9)
[2021-03-17 06:11] LABS: Phosphorous 4.4 mg/dL (2.7-4.5); Potassium 5.4 mEq/L (3.5-5.1); Uric Acid 4.1 mg/dL (2.3-7.6)
[2021-03-17 06:20] LABS: Anisocytosis 1+ (Not Present); Platelet Estimate Decreased (Normal)
[2021-03-17 07:33] VITALS: BP 151/65
[2021-03-17] MEDS ORDERED: *HR* Phytonadione 5 MG TABLET PO ONE (07:55)
[2021-03-17] MEDS: Cyanocobalamin (B-12) 1,000 MCG TABLET PO SCH (09:25)
[2021-03-17] MEDS: allopurinoL 300 MG TABLET PO SCH (09:25)
[2021-03-17] MEDS: Aspirin 81 MG TAB.CHEW PO SCH (09:25)
== END 2021-03-17 10:30 | disposition home health service (06) | DRG 291 ==
LOC: EMEROOARM 13:21 → 3ANU 13:21 → SUATTDRO 20:17 → 3ANU 21:38
PROVIDERS: ADMIT Internal Medicine; ATTEND Internal Medicine

== ENCOUNTER 2021-04-05 17:54 | Observation (INO) ==
[2021-04-05 18:48] LABS: Basophils % 0.6 %; Eosinophils % 1.3 %; Hematocrit 31.1 % (37.5-50.1); Hemoglobin 10.5 g/dL (12.9-16.9); Immature Granulocytes % 0.3 % (0-4); Lymphocytes # 0.3 K/mcL (0.6-4.6); Lymphocytes % 8.7 %; Mean Corpuscular HGB Conc 33.8 g/dL (31.6-35.5); Mean Corpuscular Hemoglobin 29.6 pg (28.0-33.3); Mean Corpuscular Volume 87.6 fL (83.0-100.0); Mean Platelet Volume 9.7 fL (9.4-12.4); Monocytes # 0.3 K/mcL (0.0-1.3); Monocytes % 9.7 %; Neutrophils # 2.5 K/mcL (1.6-8.9); Red Blood Count 3.55 M/mcL (4.19-5.50); Red Cell Distribution Width 18.6 % (11.5-14.5); Segmented Neutrophils % 79.4 %; White Blood Count 3.1 K/mcL (4.3-11.1)
[2021-04-05 18:49] LABS: Platelet Count 90 K/mcL (140-400)
[2021-04-05 18:57] LABS: Bilirubin,Urine Negative (Negative); Blood,Urine Small (Negative); Clarity,Urine Clear (Clear); Color,Urine Light-Yellow (Yellow); Glucose,Urine (UA) Normal (Normal); Ketones,Urine Negative (Negative); Leukocyte Esterase,Urine Negative (Negative); Nitrite,Urine Negative (Negative); Protein,Urine 100 mg/dL (Neg-Trace); Specific Gravity,Urine 1.012 (1.010-1.025); WBC,Urine 0-3 per hpf (0-3)
[2021-04-05] MEDS ORDERED: Furosemide 40 MG/4 ML VIAL IVP ONE (19:01)
[2021-04-05] MEDS ORDERED: cefTRIAXone 1,000 MG in Water for inj. (sterile) 10 ML IVP ONE (19:01)
[2021-04-05] MEDS ORDERED: Azithromycin 500 MG in 0.9 % Sodium Chloride 250 ML IVPB ONE (19:01)
[2021-04-05 19:10] LABS: Alanine Aminotransferase 7 Units/L (7-52); Albumin 3.6 g/dL (3.5-5.7); Albumin/Globulin Ratio 1.2 (1.1-2.2); Alkaline Phosphatase 108 Units/L (34-104); Aspartate Amino Transferase 15 Units/L (13-39); BUN/Creatinine Ratio 16 (6-26); Bilirubin,Direct 0.4 mg/dL (0.0-0.2); Bilirubin,Indirect 0.9 mg/dL (0.0-1.0); Bilirubin,Total 1.3 mg/dL (0.3-1.0); Blood Urea Nitrogen 13 mg/dL (8-23); Calcium 8.3 mg/dL (8.6-10.3); Carbon Dioxide 27 mEq/L (23-29); Chloride 94 mEq/L (98-107); Globulin 2.9 g/dL (2.4-3.5); Glucose 123 mg/dL (70-105); Osmolality,Calculated 271 (280-300); Potassium 3.1 mEq/L (3.5-5.1); Sodium 130 mEq/L (136-145); Total Protein 6.5 g/dL (6.4-8.9); eGFR For African Americans > 60 (> 60); eGFR For Non-African Americans > 60 (> 60)
[2021-04-05 19:11] LABS: Troponin I < 0.03 ng/mL (< 0.04)
[2021-04-05] MEDS ORDERED: Melatonin 3 MG TABLET PO PRN (21:16)
[2021-04-05] MEDS ORDERED: Naloxone 0.4 MG/ML INJ IVP PRN (21:16)
[2021-04-05] MEDS ORDERED: Ondansetron 4 MG/2 ML VIAL IVP PRN (21:16)
[2021-04-06 02:48] LABS: Mean Corpuscular Volume 89.5 fL (83.0-100.0); Red Cell Distribution Width 18.6 % (11.5-14.5)
[2021-04-06 02:50] LABS: Hematocrit 28.2 % (37.5-50.1); Immature Platelets 4.4 % (1.1-6.1); Mean Corpuscular HGB Conc 31.9 g/dL (31.6-35.5); Mean Corpuscular Hemoglobin 28.6 pg (28.0-33.3); Red Blood Count 3.15 M/mcL (4.19-5.50); White Blood Count 2.5 K/mcL (4.3-11.1)
[2021-04-06 03:03] LABS: BUN/Creatinine Ratio 16 (6-26); Blood Urea Nitrogen 13 mg/dL (8-23); Calcium 7.8 mg/dL (8.6-10.3); Carbon Dioxide 30 mEq/L (23-29); Chloride 95 mEq/L (98-107); Glucose 144 mg/dL (70-105); Osmolality,Calculated 275 (280-300); Potassium 3.2 mEq/L (3.5-5.1); Sodium 131 mEq/L (136-145); eGFR For African Americans > 60 (> 60); eGFR For Non-African Americans > 60 (> 60)
[2021-04-06] MEDS ORDERED: Furosemide 40 MG/4 ML VIAL IVP SCH ×2 (05:00→08:00)
[2021-04-06] MEDS ORDERED: Vancomycin 1,250 MG/262.5 ML IV.SOLN IVPB SCH (05:00)
[2021-04-06 06:01] LABS: INR 1.3; Prothrombin Time 15.2 Seconds (9.4-12.1)
[2021-04-06] MEDS: Acetaminophen 325 MG TABLET PO PRN ×2 (08:15→20:14)
[2021-04-06] MEDS ORDERED: Azithromycin 500 MG in 0.9 % Sodium Chloride 250 ML IVPB SCH (13:00)
[2021-04-06] MEDS ORDERED: cefTRIAXone 1,000 MG in 0.9 % Sodium Chloride Mini Bag 100 ML IVPB SCH (13:00)
[2021-04-06] MEDS ORDERED: *HR* Warfarin 5 MG TABLET PO ONE (18:00)
[2021-04-06] MEDS ORDERED: Warfarin perPT PO PRN (18:00)
[2021-04-06] MEDS: Azithromycin 500 MG in 0.9 % Sodium Chloride 250 ML IVPB SCH (18:07)
[2021-04-06] MEDS: cefTRIAXone 1,000 MG in Water for inj. (sterile) 10 ML IVP SCH (20:14)
[2021-04-06] MEDS: Acyclovir 200 MG CAPSULE PO SCH (20:14)
[2021-04-07 02:28] LABS: Basophils % 0.3 %; Eosinophils # 0.1 K/mcL (0.0-0.6); Eosinophils % 2.9 %; Hematocrit 27.8 % (37.5-50.1); Hemoglobin 9.1 g/dL (12.9-16.9); Immature Granulocytes % 0.3 % (0-4); Lymphocytes # 0.3 K/mcL (0.6-4.6); Lymphocytes % 8.9 %; Mean Corpuscular HGB Conc 32.7 g/dL (31.6-35.5); Mean Corpuscular Hemoglobin 29.6 pg (28.0-33.3); Mean Corpuscular Volume 90.6 fL (83.0-100.0); Mean Platelet Volume 10.7 fL (9.4-12.4); Monocytes # 0.4 K/mcL (0.0-1.3); Monocytes % 11.7 %; Neutrophils # 2.4 K/mcL (1.6-8.9); Red Blood Count 3.07 M/mcL (4.19-5.50); Red Cell Distribution Width 18.6 % (11.5-14.5); Segmented Neutrophils % 75.9 %; White Blood Count 3.2 K/mcL (4.3-11.1)
[2021-04-07 02:33] LABS: Platelet Count 86 K/mcL (140-400)
[2021-04-07 02:44] LABS: BUN/Creatinine Ratio 22 (6-26); Blood Urea Nitrogen 15 mg/dL (8-23); Calcium 7.8 mg/dL (8.6-10.3); Carbon Dioxide 27 mEq/L (23-29); Chloride 97 mEq/L (98-107); Glucose 161 mg/dL (70-105); Osmolality,Calculated 276 (280-300); Potassium 3.5 mEq/L (3.5-5.1); Sodium 131 mEq/L (136-145); eGFR For African Americans > 60 (> 60); eGFR For Non-African Americans > 60 (> 60)
[2021-04-07] MEDS ORDERED: Vancomycin 1,250 MG/262.5 ML IV.SOLN IVPB SCH (05:00)
[2021-04-07 05:42] LABS: INR 1.3; Prothrombin Time 14.8 Seconds (9.4-12.1)
[2021-04-07] MEDS: allopurinoL 300 MG TABLET PO SCH (08:04)
[2021-04-07] MEDS: Cyanocobalamin (B-12) 1,000 MCG TABLET PO SCH (08:04)
[2021-04-07] MEDS: Acyclovir 200 MG CAPSULE PO SCH ×2 (08:05→20:32)
[2021-04-07] MEDS: amLODIPine 5 MG TABLET PO SCH (08:05)
[2021-04-07] MEDS: lisinopriL 20 MG TABLET PO SCH (08:05)
[2021-04-07] MEDS: Hydroxyurea 500 MG CAPSULE PO SCH (08:06)
[2021-04-07] MEDS ORDERED: Furosemide 40 MG/4 ML VIAL IVP SCH (09:00)
[2021-04-07] MEDS ORDERED: *HR* Warfarin 5 MG TABLET PO ONE (18:00)
[2021-04-07] MEDS: Azithromycin 500 MG in 0.9 % Sodium Chloride 250 ML IVPB SCH (18:05)
[2021-04-07] MEDS: Furosemide 40 MG/4 ML VIAL IVP SCH (20:32)
[2021-04-07] MEDS: cefTRIAXone 1,000 MG in Water for inj. (sterile) 10 ML IVP SCH (20:33)
[2021-04-08] MEDS: Acetaminophen 325 MG TABLET PO PRN (00:09)
[2021-04-08 05:01] LABS: Basophils % 0.8 %; Hematocrit 27.9 % (37.5-50.1); Immature Granulocytes % 0.4 % (0-4)
[2021-04-08 05:03] LABS: Eosinophils # 0.2 K/mcL (0.0-0.6); Eosinophils % 6.3 %; Hemoglobin 8.9 g/dL (12.9-16.9); Immature Platelets 3.4 % (1.1-6.1); Lymphocytes # 0.3 K/mcL (0.6-4.6); Lymphocytes % 12.5 %; Mean Corpuscular HGB Conc 31.9 g/dL (31.6-35.5); Mean Corpuscular Hemoglobin 28.8 pg (28.0-33.3); Mean Corpuscular Volume 90.3 fL (83.0-100.0); Monocytes # 0.3 K/mcL (0.0-1.3); Monocytes % 11.7 %; Neutrophils # 1.8 K/mcL (1.6-8.9); Platelet Count 107 K/mcL (140-400); Red Blood Count 3.09 M/mcL (4.19-5.50); Red Cell Distribution Width 18.5 % (11.5-14.5); Segmented Neutrophils % 68.3 %; White Blood Count 2.6 K/mcL (4.3-11.1)
[2021-04-08 05:19] LABS: BUN/Creatinine Ratio 21 (6-26); Blood Urea Nitrogen 16 mg/dL (8-23); Calcium 8.1 mg/dL (8.6-10.3); Carbon Dioxide 33 mEq/L (23-29); Chloride 96 mEq/L (98-107); Glucose 136 mg/dL (70-105); INR 1.2; Osmolality,Calculated 283 (280-300); Potassium 3.2 mEq/L (3.5-5.1); Prothrombin Time 14.3 Seconds (9.4-12.1); Sodium 135 mEq/L (136-145); eGFR For African Americans > 60 (> 60); eGFR For Non-African Americans > 60 (> 60)
[2021-04-08] MEDS: lisinopriL 20 MG TABLET PO SCH (08:40)
[2021-04-08] MEDS: allopurinoL 300 MG TABLET PO SCH (08:40)
[2021-04-08] MEDS: Acyclovir 200 MG CAPSULE PO SCH (08:41)
[2021-04-08] MEDS: Furosemide 40 MG/4 ML VIAL IVP SCH (08:41)
[2021-04-08] MEDS: amLODIPine 5 MG TABLET PO SCH (08:41)
[2021-04-08] MEDS: Cyanocobalamin (B-12) 1,000 MCG TABLET PO SCH (08:41)
[2021-04-08] MEDS: Hydroxyurea 500 MG CAPSULE PO SCH (08:41)
[2021-04-08 11:24] VITALS: BP 157/61
== END 2021-04-08 14:58 | disposition home or self-care (01) ==
LOC: EMEROOARM 17:54 → 3ANU 17:54 → SUATTDRO 20:52 → 3ANU 21:58
PROVIDERS: ADMIT Student in an Organized Health Care Education/Training Program; ATTEND Family Medicine